=== PATIENT | female | born 1940 | race Caucasian/White ===

== ENCOUNTER 2017-04-07 12:58 | Emergency (ER) | payer OTHER ==
[2017-04-07 13:34] VITALS: BP 147/83; PULSE 81; TEMP 98.1; BMI 26.6
--- NOTE | 2017-04-07 14:11 | PDOC ---
*Physical Exam - Vital Signs Last Vital Signs Temp Pulse Resp BP Pulse Ox 98.1 F 81 16 147/83 04/07/17 13:17 04/07/17 13:17 04/07/17 13:17 04/07/17 13:17 - Physical Exam Comments: 04/07/17 14:11 The patient was examined by WARPER TENDER Andolino] under my direct supervision. I personally evaluated the patient. I concur with the above findings and the plan of care. ED Treatment Course - RADIOLOGY Radiology Studies Ordered: Category Date Time Status KUB (KID UR & BLAD) [RAD] Stat Radiology 04/07/17 13:21 Taken *DC/Admit/Observation/Transfer Diagnosis at time of Disposition: Gastrojejunostomy tube status - Discharge Dispostion Disposition: SENIOR CARE FACILITY - Referrals Referrals: Diego Coffey MD [Primary Care Provider] - - Patient Instructions Additional Instructions: G tube is cleared for use Gairbay catheter has been changed. Patient can be returned to shelter facility. - Post Discharge Activity
--- NOTE | 2017-04-07 14:20 | PDOC ---
History of Present Illness - General Chief Complaint: G Tube Problem Stated Complaint: GTUBE REPLACEMENT Time Seen by Provider: 04/07/17 13:47 History Source: Patient Exam Limitations: No Limitations - History of Present Illness Initial Comments: 04/07/17 13:57 Patient is a [76-year-old female from [facility], BIBA, vented, H/O supranuclear palsy, paralyzed, nonverbal, sent for GT evaluation. Gtube was dislodged during turning and replaced. Needs a GT study prior to use. ] Allergies: Levofloxacin Medications: [See medication list] Family History: Non-contributory Social History: Denies smoking, alcohol use, or IVDU Vital signs on arrival are [notable for temp 97.4] Past History - Past Medical History Allergies/Adverse Reactions: Allergies Allergy/AdvReac Type Severity Reaction Status Date / Time levofloxacin [From Levaquin] Allergy Verified 04/07/17 13:17 Home Medications: Ambulatory Orders Atenolol [Tenormin -] 25 mg PO DAILY 01/02/15 Methenamine 1 gm PO BID 01/02/15 Mirtazapine 30 mg PO DAILY 01/02/15 Paroxetine HCl 40 mg PO DAILY 01/02/15 Multivitamin 1 tab PO DAILY 01/10/15 Prostat Sugar-Free Packet - 1 packet PO TID 01/10/15 COPD: No HTN: Yes Hypercholesterolemia: Yes - Surgical History GI Surgery: Yes (GT placement) Orthopedic Surgery: Yes (ankle sx) - Suicide/Smoking/Psychosocial Hx Smoking History: Never smoked Have you smoked in the past 12 months: No Information on smoking cessation initiated: No Hx Alcohol Use: No Drug/Substance Use Hx: No Substance Use Type: None Review of Systems - Review of Systems Constitutional: No: Symptoms Reported Respiratory: No: Symptoms reported Cardiac (ROS): No: Symptoms Reported ABD/GI: No: Abdominal Distended, Diarrhea, Vomiting, Tarry Stools All Other Systems: Reviewed and Negative *Physical Exam - Vital Signs Last Vital Signs Temp Pulse Resp BP Pulse Ox 98.1 F 81 16 147/83 04/07/17 13:17 04/07/17 13:17 04/07/17 13:17 04/07/17 13:17 - Physical Exam General Appearance: Yes: Other (Proper hygeine) Neck: negative: Lymphadenopathy (R), Lymphadenopathy (L) Respiratory/Chest: positive: Other (Vented, rhonchi bilat) Cardiovascular: positive: Regular Rhythm, Regular Rate Gastrointestinal/Abdominal: positive: Normal Bowel Sounds, Flat, Soft, Other ( no facial grimaces on exam). negative: Distended Lymphatic: negative: Adenopathy Integumentary: positive: Normal Color, Dry Neurologic: positive: Alert (opens eyes, blinks on command) Medical Decision Making - Medical Decision Making 04/07/17 14:25 A/P: H&H G-tube was replaced here for G-tube study for clearance to use. X-ray performed awaiting results family is also requesting for Garibay catheter to be changed states it has been not changed in 30 days. Patient is afebrile with no evidence of infection will change Garibay catheter 04/07/17 16:23 Garibay catheter has been changed, G-tube is within the stomach, patient can be DC back to facility. Son was made aware on his cell phone will call for [facility] transport *DC/Admit/Observation/Transfer Diagnosis at time of Disposition: Gastrojejunostomy tube status - Discharge Dispostion Disposition: SENIOR CARE FACILITY Admit: No - Referrals Referrals: Diego Coffey MD [Primary Care Provider] - - Patient Instructions Additional Instructions: G tube is cleared for use Garibay catheter has been changed. Patient can be returned to care home facility. - Post Discharge Activity
== END 2017-04-07 19:15 ==
LOC: JER 12:58
DX: Z43.1 Encounter for attention to gastrostomy (principal)
CPT/HCPCS: 74018-TC; 99282-25

== ENCOUNTER 2017-05-28 18:20 | Inpatient (IN) | payer OTHER ==
--- NOTE | 2017-05-28 18:46 | PDOC ---
Attending Attestation - Resident Resident Name: Prakash Mac - ED Attending Attestation I have performed the following: I have examined & evaluated the patient, The case was reviewed & discussed with the resident, I agree w/resident's findings & plan, Exceptions are as noted - HPI HPI: 05/28/17 19:19 Ms Pura Grimes is a 76 yo F with a history of supernuclear palsy, recently seen in the ER s/p G tube dislodgement and replacement Pt apparently has been being treated for UTI with bactrim for the past week Pt presents to the ER due to fevers Pt has no localizing complaints at this time 05/28/17 19:21 - Physicial Exam PE: 05/29/17 00:41 GENERAL: Awake, alert, and fully oriented, in no acute distress, responds to questions with blinking HEAD: No signs of trauma EYES: PERRLA, EOMI, sclera anicteric, conjunctiva clear ENT: tracheostomy in place, Moist mucosa NECK: supple, tracheostomy in place LUNGS: decreased breath sounds at bases, coarse breath sounds bilaterally HEART: Regular rate and rhythm, normal S1 and S2, no murmurs, rubs or gallops, peripheral pulses normal and equal bilaterally. ABDOMEN: Soft, nontender EXTREMITIES: No lower extremity edema SKIN: Sacral decubiti - Medical Decision Making 05/28/17 19:22 76 yo F presenting to the ER due to fever Will place sepsis orderset Eval for source ? resistant UTI Pneumonia no cellulitis noted 05/28/17 19:22 Laboratory Tests 05/28/17 05/28/17 05/28/17 20:00 20:00 20:00 WBC 15.1 H Hgb 11.4 Hct 33.7 Plt Count 366 Neutrophils % 65.4 Lymphocytes % 24.9 Sodium 130 L Potassium 3.6 Chloride 92 L Carbon Dioxide 28 BUN 48 H Creatinine 0.6 Random Glucose 96 Lactic Acid Creatine Kinase 38 Troponin I < 0.02 Urine Blood Negative Urine Nitrite Negative Ur Leukocyte Esterase 3+ H Urine WBC (Auto) 352 Urine RBC (Auto) 74 Stool Occult Blood 05/28/17 05/28/17 20:00 21:20 WBC Hgb Hct Plt Count Neutrophils % Lymphocytes % Sodium Potassium Chloride Carbon Dioxide BUN Creatinine Random Glucose Lactic Acid 1.2 Creatine Kinase Troponin I Urine Blood Urine Nitrite Ur Leukocyte Esterase Urine WBC (Auto) Urine RBC (Auto) Stool Occult Blood Negative Lactic nml (+) UTI despite outpt treatment with Bactrim (this is complicated by the fact that this patient has an indwelling cathether) Ceftriaxone ordered Admit to hospitalist service Clinical Impression: fever, initial presentation UTI, initial presentation Discharge Disposition - Diagnosis UTI (urinary tract infection) Qualifiers: Urinary tract infection type: catheter-associated UTI Indwelling urinary catheter type: indwelling urethral catheter Encounter type: initial encounter Qualified Code(s): T83.511A - Infection and inflammatory reaction due to indwelling urethral catheter, initial encounter - Discharge Dispostion Condition at time of disposition: Stable Admit: Yes - Referrals Referrals: Diego Coffey MD [Primary Care Provider] - - Patient Instructions - Post Discharge Activity
[2017-05-28 19:15] VITALS: BMI 26.6
[2017-05-28 20:07] LABS: BASO % 1.1 % (0-2.0); HEMATOCRIT 33.7 % (32.4-45.2); HEMOGLOBIN 11.4 GM/dL (10.7-15.3); LYMPH % 24.9 % (8-40); MCH 29.8 pg (25.7-33.7); MCHC 33.8 g/dl (32.0-36.0); MEAN PLT VOLUME 8.1 fl (7.5-11.1); MONO % 7.6 % (3.8-10.2); NEUT % 65.4 % (42.8-82.8); PLATELET COUNT 366 K/MM3 (134-434); RBC 3.82 M/mm3 (3.60-5.2); RDW 15.2 % (11.6-15.6); WHITE BLOOD COUNT 15.1 K/mm3 (4.0-10.0)
--- NOTE | 2017-05-28 20:19 | PDOC ---
History of Present Illness - General Chief Complaint: SIRS, Suspected/Possible Stated Complaint: FEVER Time Seen by Provider: 05/28/17 18:34 History Source: Family Exam Limitations: Clinical Condition - History of Present Illness Initial Comments: 05/28/17 20:11 history of supranuclear palsy, s/p trach placement in 03/14 and g-tube placement in 2014 [facility] of possible infection. Patient has extremely limited communication at baseline which limits evaluation of mental status and history. Her daughter reports that she had been treated for a UTI with bactrim for the past week at [facility], but was found to be febrile and was sent in for evaluation. Patient has prior urine culture positive for proteus and klebsiella, resistant to cipro and nitrofurantoin. Patient has alvarez placed. Daughter also reports significant amount of fluid, mostly clear with small amount of brown material discharging from around tube. Past History - Past Medical History Allergies/Adverse Reactions: Allergies Allergy/AdvReac Type Severity Reaction Status Date / Time levofloxacin [From Levaquin] Allergy Verified 05/28/17 18:25 Home Medications: Ambulatory Orders Acetaminophen [Tylenol] 650 mg GT QID PRN 05/25/17 Albuterol 2.5/Ipratropium 0.5 [Duoneb -] 1 neb IH QID 05/25/17 Bismuth Tribromoph/Petrolatum [Xeroform Petrolatum Dress] 1 each TP DAILY Heparin - 5,000 unit SQ BID 05/25/17 Midodrine HCl 10 mg GT Q8H 05/25/17 Mirtazapine [Remeron -] 30 mg GT HS 05/25/17 Nystatin/Triamcin [Nystatin-Triamcinolone Cream] 15 gm TP DAILY 05/25/17 Olopatadine HCl [Patanol] 1 drop OD BID 05/25/17 Paroxetine HCl [Paxil] 40 mg GT DAILY 05/25/17 Polyethylene Glycol 3350 [Miralax (For Bowel Prep) -] 17 gm GT DAILY 05/25/17 Sennosides [Senna] 2 tab GT HS 05/25/17 Silver Sulfadiazine 1% Top Cr [Silvadene -] 1 applic TP DAILY 05/25/17 Albuterol 2.5/Ipratropium 0.5 [Duoneb -] 1 amp IH QID 05/28/17 Famotidine 20 mg PO BID 05/28/17 Hypromellose 0.5% Opth Soln [Artificial Tears] 1 drop OU BID 05/28/17 Tuberculin,Purif.prot.deriv. [Tubersol] 05/28/17 COPD: Yes Psychiatric Problems: Yes (DEPRESSION, BIPOLAR) - Surgical History Abdominal Surgery: Yes (G TUBE) Neurologic Surgery: Yes (RT KNEE REPLACED) - Suicide/Smoking/Psychosocial Hx Smoking History: Unknown if ever smoked Have you smoked in the past 12 months: No Information on smoking cessation initiated: No Hx Alcohol Use: No Drug/Substance Use Hx: No Substance Use Type: None Review of Systems - Review of Systems Able to Perform ROS?: No (2/2 patient condition) *Physical Exam - Vital Signs Last Vital Signs Temp Pulse Resp BP Pulse Ox 100.4 F H 88 14 107/79 100 05/28/17 18:25 05/28/17 18:25 05/28/17 18:30 05/28/17 18:25 05/28/17 18:25 - Physical Exam Comments: 05/28/17 20:30 GENERAL: Awake, alert, and fully oriented, in no acute distress HEAD: No signs of trauma, normocephalic, atraumatic EYES: PERRLA, EOMI, sclera anicteric, conjunctiva clear ENT: Auricles normal inspection, hearing grossly normal, nares patent, oropharynx clear without exudates. Moist mucosa NECK: Normal ROM, supple, no lymphadenopathy, JVD, or masses LUNGS: No distress, speaks full sentences, coarse breath sounds bilaterally HEART: Regular rate and rhythm, normal S1 and S2, no murmurs, rubs or gallops, peripheral pulses normal and equal bilaterally. ABDOMEN: Soft, nontender, normoactive bowel sounds. No guarding, no rebound. No masses EXTREMITIES: Normal inspection, Normal range of motion, no edema. No clubbing or cyanosis. SKIN: Warm, Dry, normal turgor, no rashes or lesions noted. ED Treatment Course - LABORATORY CBC & Chemistry Diagram: 05/31/17 06:23 05/31/17 06:23 - ADDITIONAL ORDERS Additional order review: 05/28/17 20:00 RBC 3.82 MCV 88.0 MCHC 33.8 RDW 15.2 MPV 8.1 Neutrophils % 65.4 Lymphocytes % 24.9 Monocytes % 7.6 Eosinophils % 1.0 Basophils % 1.1 - RADIOLOGY Radiology Studies Ordered: Category Date Time Status CHEST X-RAY PORTABLE* [RAD] Stat Radiology 05/28/17 18:43 Taken Medical Decision Making - Medical Decision Making 05/28/17 20:34 Patient is 76F with history of supranuclear palsy, on vent and g tube here today with fever of unknown origin. Vital signs notable for fever, but no tachycardia and normal respiratory rate. Bedside ultrasound shows b-lines bilaterally with decreased ejection fraction. Urine in alvarez appears infected. Will cover broadly, low threshold to antibiose. Will hold fluids for now, patient's lungs appear fluid overloaded. EKG shows normal sinus rhythm, normal rate, normal axis. No st elevations/ depressions. No t wave abnormalities. Normal QRS/IN/QTc intervals. 05/28/17 21:50 Patient has clear fluid with brown flecks discharging from tube. Concern for obstruction vs fluid overload. Will do abdominal CT. 05/28/17 21:55 Laboratory Tests 05/28/17 05/28/17 05/28/17 20:00 20:00 20:00 WBC 15.1 H Hgb 11.4 Hct 33.7 Plt Count 366 VBG pH 7.58 H BUN Creatinine Creat Clearance w eGFR Lactic Acid Troponin I Ur Leukocyte Esterase 3+ H Urine WBC (Auto) 352 Urine Bacteria Many Stool Occult Blood 05/28/17 05/28/17 05/28/17 20:00 20:00 21:20 WBC Hgb Hct Plt Count VBG pH BUN 48 H Creatinine 0.6 Creat Clearance w eGFR > 60 Lactic Acid 1.2 Troponin I < 0.02 Ur Leukocyte Esterase Urine WBC (Auto) Urine Bacteria Stool Occult Blood Negative CBC shows leukocytosis, vbg shows alkalosis. UA shows UTI. Trop neg. Lactate neg. Cr normal. Stool for occult blood negative. CT abd/pelvis pending. 05/28/17 23:26 CT shows G tube appropriately placed with distended stomach, large stool burden. No acute pathology. Patient's daughter reports patient has had alvarez for 7 years. Placed due to urinary retention. Current one has been placed for two weeks. Will change alvarez. *DC/Admit/Observation/Transfer Diagnosis at time of Disposition: UTI (urinary tract infection) Qualifiers: Urinary tract infection type: catheter-associated UTI Indwelling urinary catheter type: indwelling urethral catheter Encounter type: initial encounter Qualified Code(s): T83.511A - Infection and inflammatory reaction due to indwelling urethral catheter, initial encounter - Discharge Dispostion Condition at time of disposition: Stable Admit: Yes - Referrals - Patient Instructions - Post Discharge Activity
[2017-05-28 20:21] LABS: URINE APPEARANCE CLOUDY; URINE BILIRUBIN NEGATIVE (NEGATIVE); URINE BLOOD NEGATIVE (NEGATIVE); URINE COLOR AMBER; URINE GLUCOSE (UA) NEGATIVE (NEGATIVE); URINE KETONE NEGATIVE (NEGATIVE); URINE NITRITE NEGATIVE (NEGATIVE); URINE UROBILINOGEN 4.0 E.U/dl mg/dL (0.2-1.0); VENOUS PH 7.58 (7.32-7.42); VENOUS PO2 45.5 mmHg (28-48)
[2017-05-28 20:26] LABS: INR 1.06 (0.82-1.09)
[2017-05-28 20:29] LABS: ACTIVATED PTT 25.2 SECONDS (26.9-34.4); URINE LEUK ESTERASE 3+ (NEGATIVE); URINE PROTEIN 2+ (NEGATIVE)
[2017-05-28 20:30] LABS: EPI CELLS RARE /HPF (FEW); URINE BACTERIA MANY /hpf (NONE SEEN); URINE MUCUS RARE
[2017-05-28 20:41] LABS: ALBUMIN 3.2 g/dl (3.4-5.0); ANION GAP 10 (8-16); BILIRUBIN,TOTAL 0.5 mg/dL (0.2-1.0); BLOOD UREA NITROGEN 48 mg/dL (7-18); CALCIUM 8.7 mg/dL (8.5-10.1); CHLORIDE 92 mmol/L (98-107); CO2 28 mmol/L (21-32); CREATININE 0.6 mg/dL (0.55-1.02); GLUCOSE,RANDOM 96 mg/dL (74-106); SGPT/ALT 15 U/L (12-78); SODIUM 130 mmol/L (136-145); TOT PROT 6.8 g/dl (6.4-8.2)
[2017-05-28 20:43] LABS: ALK PHOS 151 U/L (45-117)
[2017-05-28 20:46] LABS: POTASSIUM 3.6 mmol/L (3.5-5.1); SGOT/AST 20 U/L (15-37)
[2017-05-28] MEDS ORDERED: CEFTRIAXONE 1 GM in DEXTROSE 5%-WATER - 50 ML IVPB ONE (21:51)
[2017-05-28] MEDS ORDERED: cefTRIAXone SODIUM 1 GM VIAL ONE (22:27)
[2017-05-28] MEDS ORDERED: ACETAMINOPHEN 1000 MG/100 ML VIAL (NON FORMULARY) IVPB ONE (23:05)
--- NOTE | 2017-05-28 23:56 | HP ---
CHIEF COMPLAINT: Fever, UTI PCP: HISTORY OF PRESENT ILLNESS: History was taken from medical records and ED notes pt is non verbal. 76 year old femal with history of supranuclear palsy, s/p trach placement in and g-tube placement in 2014 [facility]. Patient has extremely limited communication at baseline which limits evaluation of mental status and history. Her daughter reports that she had been treated for a UTI with bactrim for the past week at [facility], but was found to be febrile and was sent in for evaluation. Patient has prior urine culture positive for proteus and klebsiella, resistant to cipro and nitrofurantoin. Patient has alvarez placed. Daughter also reports significant amount of fluid, mostly clear with small amount of brown material discharging from around tube. ER course was notable for: (1)cbc, CMP (2)UA (3)Ceftriaxone 1 gm IVBP Recent Travel:denies PAST MEDICAL HISTORY: unobtained PAST SURGICAL HISTORY: unobtained Social History: un able to obtain Smoking: Alcohol: Drugs: Family History:none Allergies levofloxacin [From Levaquin] Allergy (Verified 05/28/17 18:25) HOME MEDICATIONS: Home Medications Medication Instructions Recorded Acetaminophen [Tylenol] 650 mg GT QID PRN 05/25/17 Albuterol 2.5/Ipratropium 0.5 1 neb IH QID 05/25/17 [Duoneb -] Bismuth Tribromoph/Petrolatum 1 each TP DAILY 05/25/17 [Xeroform Petrolatum Dress] Heparin - 5,000 unit SQ BID 05/25/17 Midodrine HCl 10 mg GT Q8H 05/25/17 Mirtazapine [Remeron -] 30 mg GT HS 05/25/17 Nystatin/Triamcin 15 gm TP DAILY 05/25/17 [Nystatin-Triamcinolone Cream] Olopatadine HCl [Patanol] 1 drop OD BID 05/25/17 Paroxetine HCl [Paxil] 40 mg GT DAILY 05/25/17 Polyethylene Glycol 3350 [Miralax 17 gm GT DAILY 05/25/17 (For Bowel Prep) -] Sennosides [Senna] 2 tab GT HS 05/25/17 Silver Sulfadiazine 1% Top Cr 1 applic TP DAILY 05/25/17 [Silvadene -] Albuterol 2.5/Ipratropium 0.5 1 amp IH QID 05/28/17 [Duoneb -] Famotidine 20 mg PO BID 05/28/17 Hypromellose 0.5% Opth Soln 1 drop OU BID 05/28/17 [Artificial Tears] Tuberculin,Purif.prot.deriv. 05/28/17 [Tubersol] REVIEW OF SYSTEMS unable to obtain , pt is non verbal PHYSICAL EXAMINATION Vital Signs - 24 hr 05/28/17 05/28/17 05/28/17 18:25 18:30 20:30 Temperature 100.4 F H Pulse Rate 88 Pulse Rate [ Apical] Respiratory 12 14 Rate Blood Pressure 107/79 Blood Pressure [Right Arm] O2 Sat by Pulse 100 98 Oximetry (%) 05/28/17 05/28/17 05/28/17 20:45 21:58 22:09 Temperature 100.4 F H 100.4 F H Pulse Rate 97 H Pulse Rate [ 90 Apical] Respiratory 16 17 18 Rate Blood Pressure 114/82 Blood Pressure 112/84 [Right Arm] O2 Sat by Pulse 10 L 98 Oximetry (%) GENERAL: non verbal , seems in NAD , Trachea in place , G tube in place , HEAD: Normal with no signs of trauma. EYES: Pupils equal, round and reactive to light, extraocular movements intact, sclera anicteric, conjunctiva clear. ENT :moist mucous membranes. NECK: supple without lymphadenopathy, JVD, LUNGS: CTA B/L , scattered breath sounds due to ventilator. HEART: RRR, normal S1 and S2 no MRG ABDOMEN: obese, Soft, nontender, not distended, normoactive bowel sounds, no guarding, LOWER EXTREMITIES: 2+ pulses, warm, well-perfused. No calf tenderness. No peripheral edema. NEUROLOGICAL: unable to evaluate. pt is in position with closed handgrip. SKIN: Warm, dry, 2 decubitus ulcer stage II (erythema with exfoliation but no infection) Laboratory Results - last 24 hr 05/28/17 05/28/17 05/28/17 20:00 20:00 20:00 WBC 15.1 H RBC 3.82 Hgb 11.4 Hct 33.7 MCV 88.0 MCH 29.8 MCHC 33.8 RDW 15.2 Plt Count 366 MPV 8.1 Neutrophils % 65.4 Lymphocytes % 24.9 Monocytes % 7.6 Eosinophils % 1.0 Basophils % 1.1 PT with INR 12.00 H INR 1.06 PTT (Actin FS) 25.2 L VBG pH POC VBG pCO2 POC VBG pO2 Mixed VBG HCO3 Sodium Potassium Chloride Carbon Dioxide Anion Gap BUN Creatinine Creat Clearance w eGFR Random Glucose Lactic Acid Calcium Total Bilirubin AST ALT Alkaline Phosphatase Creatine Kinase Troponin I Total Protein Albumin Urine Color Hanna Urine Appearance Cloudy Urine pH 7.0 Ur Specific [place] 1.024 Urine Protein 2+ H Urine Glucose (UA) Negative Urine Ketones Negative Urine Blood Negative Urine Nitrite Negative Urine Bilirubin Negative Urine Urobilinogen 4.0 e.u/dl H Ur Leukocyte Esterase 3+ H Urine WBC (Auto) 352 Urine RBC (Auto) 74 Ur Epithelial Cells Rare Urine Bacteria Many Urine Mucus Rare Stool Occult Blood Blood Type Antibody Screen 05/28/17 05/28/17 05/28/17 20:00 20:00 20:00 WBC RBC Hgb Hct MCV MCH MCHC RDW Plt Count MPV Neutrophils % Lymphocytes % Monocytes % Eosinophils % Basophils % PT with INR INR PTT (Actin FS) VBG pH 7.58 H POC VBG pCO2 32.0 L POC VBG pO2 45.5 Mixed VBG HCO3 30.3 H Sodium 130 L Potassium 3.6 Chloride 92 L Carbon Dioxide 28 Anion Gap 10 BUN 48 H Creatinine 0.6 Creat Clearance w eGFR > 60 Random Glucose 96 Lactic Acid 1.2 Calcium 8.7 Total Bilirubin 0.5 AST 20 ALT 15 Alkaline Phosphatase 151 H Creatine Kinase 38 Troponin I < 0.02 Total Protein 6.8 Albumin 3.2 L Urine Color Urine Appearance Urine pH Ur Specific [place] Urine Protein Urine Glucose (UA) Urine Ketones Urine Blood Urine Nitrite Urine Bilirubin Urine Urobilinogen Ur Leukocyte Esterase Urine WBC (Auto) Urine RBC (Auto) Ur Epithelial Cells Urine Bacteria Urine Mucus Stool Occult Blood Blood Type Antibody Screen 05/28/17 05/28/17 20:00 21:20 WBC RBC Hgb Hct MCV MCH MCHC RDW Plt Count MPV Neutrophils % Lymphocytes % Monocytes % Eosinophils % Basophils % PT with INR INR PTT (Actin FS) VBG pH POC VBG pCO2 POC VBG pO2 Mixed VBG HCO3 Sodium Potassium Chloride Carbon Dioxide Anion Gap BUN Creatinine Creat Clearance w eGFR Random Glucose Lactic Acid Calcium Total Bilirubin AST ALT Alkaline Phosphatase Creatine Kinase Troponin I Total Protein Albumin Urine Color Urine Appearance Urine pH Ur Specific [place] Urine Protein Urine Glucose (UA) Urine Ketones Urine Blood Urine Nitrite Urine Bilirubin Urine Urobilinogen Ur Leukocyte Esterase Urine WBC (Auto) Urine RBC (Auto) Ur Epithelial Cells Urine Bacteria Urine Mucus Stool Occult Blood Negative Blood Type B POSITIVE Antibody Screen Negative CBC, BMP 05/28/17 20:00 05/28/17 20:00 ASSESSMENT/PLAN: 76 year old female with history of supranuclear palsy, s/p trach placement in and g-tube placement in 2014 [facility] of possible infection was found to be septic and admitted for further evaluation. # sepsis secondary to UTI vs aspiration pneumonia vs another sources * temp 100.4 , Tachy 97, BP 114/82, wbc 15.1 , LA 1.2 * chronic alvarez catheter and PEG Tube * Leigh cx urine ,blood * Rocephin in ED * ID consulted Dr Tre Banuelos * IV fluids NA 100 CC/Hr * ESR, CRP , CBC , CMP # Hyponatremia * NA 130 * started on IV NS 100 CC/hr # Stage II decupitus ulcer * erythema with skin exfoliation but no signs of infection * topical radha oxide * change position q 2hr # Chronic respiratory failure on ventilator , unknown reason , stable * continue ventilator * kepp O2 > 90 % # COPD * DUO neb * O2 to keeo O2 sat >90 % # Supranuclear palsy , chronic , stable * continue to monitor # resume her home meds # FEN * NS @ 100 CC/Hr * E: Monitor * N: NPO till G tube evaluated # Proph * DVTS: sCDS, Hep 5000 q 8hr * GI: No need for now # Dispo * admit to med surg Visit type - Emergency Visit Emergency Visit: Yes ED Registration Date: 05/29/17 Care time: The patient presented to the Emergency Department on the above date and was hospitalized for further evaluation of their emergent condition. - New Patient This patient is new to me today: Yes Date on this admission: 06/01/17 - Critical Care Critical Care patient: No Hospitalist Screening - Colonoscopy Questionnaire Colonoscopy Questionnaire: Colonoscopy Questionnaire - Patient: 50 - 75 years old and never had a screening colonoscopy: Unknown History of colon or rectal polyps, or CA: Unknown History of IBD, Crohn's disease or UC: Unknown History of abdominal radiation therapy as a child: Unknown (pt is non verbal) - Relative: 1 with colon or rectal CA, or polyps at age 60 or younger: Unknown Colon or rectal CA diagnosed at age 45 or younger: Unknown Multiple relatives with colon or rectal CA: Unknown - Outcome: Screening Result: Negative Screen
[2017-05-29] MEDS ORDERED: ACETAMINOPHEN INJECTION 100 ML IVPB ONE (00:05)
[2017-05-29] MEDS ORDERED: ACETAMINOPHEN 325 MG TABLET (FP) PO PRN (01:33)
[2017-05-29] MEDS: SODIUM CHLORIDE 1,000 ML IV SCH ×2 (01:47→14:27)
[2017-05-29] MEDS ORDERED: cefTRIAXone SODIUM 1 GM VIAL ONE (01:57)
[2017-05-29] MEDS ORDERED: ACETAMINOPHEN 325 MG TABLET (FP) ONE (01:57)
[2017-05-29 02:15] LABS: ARTERIAL BLD GAS O2 SATURATION 97.5 % (90-98.9); ARTERIAL BLOOD GAS BASE EXCESS 5.5 meq/l (-2-2); ARTERIAL BLOOD GAS PO2 80.8 mmHg (70-100); CARBOXYHEMOGLOBIN 1.4 gm% (0.5-2.0)
[2017-05-29 02:16] LABS: ALLENS TEST POSITIVE
[2017-05-29 02:17] LABS: ARTERIAL BLOOD GAS PCO2 29.8 mmHg (35-45); ARTERIAL BLOOD GAS pH 7.57 (7.35-7.45)
[2017-05-29 02:20] LABS: EOS % 1.6 % (0-4.5); HEMATOCRIT 31.3 % (32.4-45.2); HEMOGLOBIN 10.7 GM/dL (10.7-15.3); LYMPH % 22.6 % (8-40); MCHC 34.1 g/dl (32.0-36.0); MEAN PLT VOLUME 7.8 fl (7.5-11.1); MONO % 7.3 % (3.8-10.2); NEUT % 67.5 % (42.8-82.8); PLATELET COUNT 353 K/MM3 (134-434); RBC 3.56 M/mm3 (3.60-5.2); RDW 15.1 % (11.6-15.6); WHITE BLOOD COUNT 11.3 K/mm3 (4.0-10.0)
[2017-05-29 02:40] LABS: INR 1.07 (0.82-1.09); PROTHROMBIN TIME (PATIENT) 12.1 SEC (9.98-11.88)
[2017-05-29 02:42] LABS: ACTIVATED PTT 25.1 SECONDS (26.9-34.4)
[2017-05-29 02:49] LABS: ALK PHOS 146 U/L (45-117); ANION GAP 13 (8-16); BILIRUBIN,TOTAL 0.3 mg/dL (0.2-1.0); BLOOD UREA NITROGEN 50 mg/dL (7-18); CHLORIDE 92 mmol/L (98-107); CO2 26 mmol/L (21-32); CREATININE 0.6 mg/dL (0.55-1.02); GLUCOSE,RANDOM 100 mg/dL (74-106); SGOT/AST 14 U/L (15-37); SGPT/ALT 14 U/L (12-78); SODIUM 131 mmol/L (136-145); TOT PROT 6.5 g/dl (6.4-8.2)
[2017-05-29 02:51] LABS: POTASSIUM 2.9 mmol/L (3.5-5.1)
[2017-05-29] MEDS ORDERED: KCL 10 MEQ IVPB 20 MEQ/200 ML INFUS.BAG IVPB ONE (03:11)
[2017-05-29] MEDS: KCL 10 MEQ IVPB 10 MEQ/100 ML INFUS.BAG IVPB SCH ×2 (03:20→04:59)
[2017-05-29 06:41] LABS: ANION GAP 14 (8-16); BLOOD UREA NITROGEN 46 mg/dL (7-18); CALCIUM 9.1 mg/dL (8.5-10.1); CHLORIDE 92 mmol/L (98-107); CO2 25 mmol/L (21-32); CREATININE 0.6 mg/dL (0.55-1.02); GLUCOSE,RANDOM 92 mg/dL (74-106); POTASSIUM 3.3 mmol/L (3.5-5.1); SODIUM 131 mmol/L (136-145)
[2017-05-29 06:42] LABS: MAGNESIUM 2.3 mg/dL (1.8-2.4); PHOSPHOROUS 3.1 mg/dL (2.5-4.9)
[2017-05-29] MEDS ORDERED: HEPARIN NA (PORCINE) 5,000 UNITS/ML 1ML VIAL ONE (06:52)
--- NOTE | 2017-05-29 07:00 | PN ---
Teaching Attending Note Name of Resident: Romel Romano ATTENDING PHYSICIAN STATEMENT I saw and evaluated the patient. I reviewed the resident's note and discussed the case with the resident. I agree with the resident's findings and plan as documented. SUBJECTIVE: 76F chronic bedbound PEG trach due to supranuclear palsy sent in from her NH for fever 100.4 OBJECTIVE: trach and PEG, nonverbal, Rt sided contractures lungs CTA abd soft NTND Ext no edema chronic indwelling alvarez minimal vent settings UA 3+ LE Temp 100.4 WBC 15 CXR: poor image quality but may be some RLL infiltrates ASSESSMENT AND PLAN: 76F with likely UTI versus PNA start ceftriaxone IVF ID eval Problem List - Problems (1) UTI (urinary tract infection) Code(s): N39.0 - URINARY TRACT INFECTION, SITE NOT SPECIFIED Qualifiers: Urinary tract infection type: catheter-associated UTI Indwelling urinary catheter type: indwelling urethral catheter Encounter type: initial encounter Qualified Code(s): T83.511A - Infection and inflammatory reaction due to indwelling urethral catheter, initial encounter; N39.0 - Urinary tract infection , site not specified; N39.0 - Urinary tract infection, site not specified
[2017-05-29] MEDS: HEPARIN NA (PORCINE) 5,000 UNITS/ML 1ML VIAL SQ SCH ×3 (07:03→21:37)
[2017-05-29 08:23] LABS: URINE APPEARANCE CLEAR; URINE BILIRUBIN NEGATIVE (NEGATIVE); URINE BLOOD 1+ (NEGATIVE); URINE COLOR YELLOW; URINE GLUCOSE (UA) NEGATIVE (NEGATIVE); URINE KETONE 1+ (NEGATIVE); URINE NITRITE NEGATIVE (NEGATIVE); URINE PROTEIN NEGATIVE (NEGATIVE)
[2017-05-29 08:42] LABS: URINE LEUK ESTERASE 2+ (NEGATIVE)
[2017-05-29 08:44] LABS: EPI CELLS RARE /HPF (FEW); URINE MUCUS RARE
--- NOTE | 2017-05-29 09:53 | PN ---
Physical Exam: SUBJECTIVE: Patient seen and examined Patient is lying in bed with no acute distress, Daughter st bedside, patient is on the Vent. OBJECTIVE: Vital Signs Temperature 98.6 F 05/29/17 07:04 Pulse Rate 92 H 05/29/17 07:04 Respiratory Rate 14 05/29/17 07:06 Blood Pressure 84/67 05/29/17 07:04 O2 Sat by Pulse Oximetry (%) 98 05/29/17 07:04 GENERAL: The patient is on the Vent. but no acute distress. HEAD: Normal with no signs of trauma. EYES: PERRL, extraocular movements intact, sclera anicteric, conjunctiva clear. ENT: Ears normal, patient is on the Vent. NECK: Trachea midline, full range of motion, supple. LUNGS: Breath sounds decreased at basis bl, No wheezing,positive rales at basis , no accessory muscle use. On the Vent. HEART: Regular rate and rhythm, S1, S2 positive, no rub or gallop. ABDOMEN: Soft, mildly distended, diminished BS, no guarding, no rebound, no hepatosplenomegaly, no masses appreciated.positive for Gtube EXTREMITIES: 2+ pulses, warm, well-perfused, no edema. NEUROLOGICAL: Cranial nerves II through XII grossly intact. Normal speech, gait not observed. PSYCH: Normal mood, normal affect. SKIN: Warm, dry, normal turgor, no rashes or lesions noted CBCD WBC 11.3 K/mm3 (4.0-10.0) H 05/29/17 02:14 RBC 3.56 M/mm3 (3.60-5.2) L 05/29/17 02:14 Hgb 10.7 GM/dL (10.7-15.3) 05/29/17 02:14 Hct 31.3 % (32.4-45.2) L 05/29/17 02:14 MCV 88.0 fl (80-96) 05/29/17 02:14 MCHC 34.1 g/dl (32.0-36.0) 05/29/17 02:14 RDW 15.1 % (11.6-15.6) 05/29/17 02:14 Plt Count 353 K/MM3 (134-434) 05/29/17 02:14 MPV 7.8 fl (7.5-11.1) 05/29/17 02:14 CMP Sodium 131 mmol/L (136-145) L 05/29/17 06:00 Potassium 3.3 mmol/L (3.5-5.1) L 05/29/17 06:00 Chloride 92 mmol/L (98-107) L 05/29/17 06:00 Carbon Dioxide 25 mmol/L (21-32) 05/29/17 06:00 Anion Gap 14 (8-16) 05/29/17 06:00 BUN 46 mg/dL (7-18) H 05/29/17 06:00 Creatinine 0.6 mg/dL (0.55-1.02) 05/29/17 06:00 Creat Clearance w eGFR > 60 (>60) 05/29/17 02:14 Random Glucose 92 mg/dL (74-106) 05/29/17 06:00 Calcium 9.1 mg/dL (8.5-10.1) 05/29/17 06:00 Total Bilirubin 0.3 mg/dL (0.2-1.0) D 05/29/17 02:14 AST 14 U/L (15-37) L 05/29/17 02:14 ALT 14 U/L (12-78) 05/29/17 02:14 Alkaline Phosphatase 146 U/L (45-117) H 05/29/17 02:14 Total Protein 6.5 g/dl (6.4-8.2) 05/29/17 02:14 Albumin 3.0 g/dl (3.4-5.0) L 05/29/17 02:14 CARDIAC ENZYMES Creatine Kinase 38 IU/L (26-192) 05/28/17 20:00 Troponin I < 0.02 ng/ml (0.00-0.05) 05/28/17 20:00 Active Medications Generic Name Dose Route Start Last Admin Trade Name Freq PRN Reason Stop Dose Admin Acetaminophen 650 mg 05/29/17 01:56 Tylenol Oral Solution - GT Q6H PRN PAIN Albuterol/Ipratropium 1 amp 05/29/17 08:00 Duoneb - NEB RQID GRACIE Artificial Tears 1 drop 05/29/17 10:00 Artificial Tears OU BID GRACIE Heparin Sodium (Porcine) 5,000 unit 05/29/17 06:00 03/03/18 07:03 Heparin - SQ 5,000 unit TID GRACIE Administration Sodium Chloride 1,000 mls @ 100 mls/hr 05/29/17 01:30 05/29/17 01:47 Normal Saline - IV 100 mls/hr ASDIR GRACIE Administration Midodrine 10 mg 05/29/17 10:00 Proamatine - GT TID-MID [facility] Mirtazapine 30 mg 05/29/17 22:00 Remeron - GT HS [facility] Nystatin/Triamcinolone Acetonide 1 applic 05/29/17 10:00 Mycolog Ii Cream - TP DAILY [facility] Paroxetine HCl 40 mg 05/29/17 10:00 Paxil - NR DAILY [facility] Polyethylene Glycol 17 gm 05/29/17 10:00 Miralax (For Bowel Prep) - PO DAILY [facility] Ranitidine HCl 150 mg 05/29/17 10:00 Zantac Oral Solution - GT BID [facility] Senna 17.6 mg 05/29/17 22:00 Senna Oral Solution - GT HS [facility] Silver Sulfadiazine 1 applic 05/29/17 10:00 Silvadene - TP DAILY [facility] Home Medications Medication Instructions Recorded Acetaminophen [Tylenol] 650 mg GT QID PRN 05/25/17 Albuterol 2.5/Ipratropium 0.5 1 neb IH QID 05/25/17 [Duoneb -] Bismuth Tribromoph/Petrolatum 1 each TP DAILY 05/25/17 [Xeroform Petrolatum Dress] Heparin - 5,000 unit SQ BID 05/25/17 Midodrine HCl 10 mg GT Q8H 05/25/17 Mirtazapine [Remeron -] 30 mg GT HS 05/25/17 Nystatin/Triamcin 15 gm TP DAILY 05/25/17 [Nystatin-Triamcinolone Cream] Olopatadine HCl [Patanol] 1 drop OD BID 05/25/17 Paroxetine HCl [Paxil] 40 mg GT DAILY 05/25/17 Polyethylene Glycol 3350 [Miralax 17 gm GT DAILY 05/25/17 (For Bowel Prep) -] Sennosides [Senna] 2 tab GT HS 05/25/17 Silver Sulfadiazine 1% Top Cr 1 applic TP DAILY 05/25/17 [Silvadene -] Albuterol 2.5/Ipratropium 0.5 1 amp IH QID 05/28/17 [Duoneb -] Famotidine 20 mg PO BID 05/28/17 Hypromellose 0.5% Opth Soln 1 drop OU BID 05/28/17 [Artificial Tears] Tuberculin,Purif.prot.deriv. 05/28/17 [Tubersol] CXR: B/l Effusions with basilar infiltrate with congestive changes, CM , old rib trauma. ASSESSMENT/PLAN: Patient is a 76 year old female with history of supranuclear palsy, s/p trach placement in 03/14 and g-tube placement in 2014 here from shelter for evaluation of possible infection was found to be septic and admitted for further evaluation. # Sepsis secondary to UTI vs aspiration pneumonia; CXR: B/l Effusions with basilar infiltrate with congestive changes, CM , old rib trauma.Leigh culture was done, follow Cx, and Bcx ON IV Rocephin daily continue, improving. # Chronic respiratory failure , trached due to having supranuclear palsy. # Acute UTI with chronic indwelling catheter for 9 years, can't remove the catheter as per patient's daughter. # Hyponatremia; NA 130--> 131 today improving will discontinue IVF since patient has congestive. # Stage II decupetus ulcer : erythema with skin exfoliation but no signs of infection ;topical radha oxide ;change position q 2hr # COPD:DUO neb;O2 to keeo O2 sat >90 % # DVT Px sCDS, Hep 5000 q 8hr GI Px: No need for now Visit type - Emergency Visit Emergency Visit: Yes ED Registration Date: 05/29/17 Care time: The patient presented to the Emergency Department on the above date and was hospitalized for further evaluation of their emergent condition. - New Patient This patient is new to me today: Yes Date on this admission: 05/29/17 - Critical Care Critical Care patient: No - Discharge Referral Referred to [facility] Med [facility] No
[2017-05-29] MEDS ORDERED: PATIENT'S OWN MEDICATION (NON-FORMULARY) (Bismuth Tribromoph/Petrolatum [Xeroform Petrolat TP SCH (10:00)
[2017-05-29] MEDS ORDERED: OLOPATADINE HCL OD SCH (10:00)
[2017-05-29] MEDS ORDERED: POLYETHYLENE GLYCOL 3350 255 GM BTL PO SCH (10:00)
[2017-05-29] MEDS ORDERED: ALBUTEROL SO4 2.5/IPRATROPIUM 0.5 INH SOL 3 ML VIAL.NEB. NEB ONE (10:10)
[2017-05-29] MEDS: ALBUTEROL SO4 2.5/IPRATROPIUM 0.5 INH SOL 3 ML VIAL.NEB. NEB SCH ×4 (10:12→20:40)
[2017-05-29] MEDS: ARTIFICIAL TEARS (POLYVINYL ALCOHOL 1.4%) OPTH DROPS OU SCH ×2 (11:27→21:36)
[2017-05-29] MEDS: PARoxetine HCL 20 MG TABLET (FP) NR SCH (11:30)
[2017-05-29] MEDS: RANITIDINE HCL 150 MG/10 ML UNIT-DOSE GT SCH ×2 (11:31→21:44)
[2017-05-29] MEDS: MIDODRINE HCL 5 MG TABLET GT SCH ×3 (11:32→18:35)
--- NOTE | 2017-05-29 11:42 | EKG ---
Test Reason : Blood Pressure : / mmHG Vent. Rate : 088 BPM Atrial Rate : 088 BPM P-R Int : 156 ms QRS Dur : 084 ms QT Int : 366 ms P-R-T Axes : 014 074 031 degrees QTc Int : 442 ms NORMAL SINUS RHYTHM NORMAL ECG WHEN COMPARED WITH ECG OF 28-SEP-2001 14:40, QT HAS LENGTHENED Confirmed by MD PRINCE, SHAQ ([id number]) on 05/29/2017 11:41:55 AM Referred By: Confirmed By:SHAQ MORRISON MD
[2017-05-29] MEDS: ACETAMINOPHEN 650 MG/20.3 ML ORAL SOLUTION (CUPS) GT PRN (12:22)
[2017-05-29] MEDS ORDERED: PT OWN MED DRAWER 7, Y5N ONE ×2 (13:53→21:12)
--- NOTE | 2017-05-29 14:52 | CON.PULM ---
Consult Consult Specialty:: PULMONARY Referred by:: Dr. Romano Reason for Consultation:: respiratory failure - History of Present Illness Chief Complaint: fever History of Present Illness: 76yo female with h/o supranuclear palsy, chronic respiratory failure s/p tracheostomy in 02/2017 who was [facility] for fever. Found to have a UTI, started on antibiotics. History obtained from son at bedside. No prior pulmonary history prior to her tracheostomy. No asthma or COPD. She was a never smoker. Was admitted to [facility] for 5 weeks for pneumonia and respiratory failure requiring trach. - History Source History Provided By: Family Member, Medical Record Limitations to Obtaining History: Clinical Condition - Alcohol/Substance Use Hx Alcohol Use: No - Smoking History Smoking history: Unknown if ever smoked Have you smoked in the past 12 months: No Home Medications - Allergies Allergies/Adverse Reactions: Allergies Allergy/AdvReac Type Severity Reaction Status Date / Time levofloxacin [From Levaquin] Allergy Verified 05/28/17 18:25 - Home Medications Home Medications: Ambulatory Orders Acetaminophen [Tylenol] 650 mg GT QID PRN 05/25/17 Albuterol 2.5/Ipratropium 0.5 [Duoneb -] 1 neb IH QID 05/25/17 Bismuth Tribromoph/Petrolatum [Xeroform Petrolatum Dress] 1 each TP DAILY Heparin - 5,000 unit SQ BID 05/25/17 Midodrine HCl 10 mg GT Q8H 05/25/17 Mirtazapine [Remeron -] 30 mg GT HS 05/25/17 Nystatin/Triamcin [Nystatin-Triamcinolone Cream] 15 gm TP DAILY 05/25/17 Olopatadine HCl [Patanol] 1 drop OD BID 05/25/17 Paroxetine HCl [Paxil] 40 mg GT DAILY 05/25/17 Polyethylene Glycol 3350 [Miralax (For Bowel Prep) -] 17 gm GT DAILY 05/25/17 Sennosides [Senna] 2 tab GT HS 05/25/17 Silver Sulfadiazine 1% Top Cr [Silvadene -] 1 applic TP DAILY 05/25/17 Albuterol 2.5/Ipratropium 0.5 [Duoneb -] 1 amp IH QID 05/28/17 Famotidine 20 mg PO BID 05/28/17 Hypromellose 0.5% Opth Soln [Artificial Tears] 1 drop OU BID 05/28/17 Tuberculin,Purif.prot.deriv. [Tubersol] 05/28/17 Review of Systems Unable to obtain ROS, reason: pt trached Physical Exam Vital Sings: Vital Signs Temperature 98.6 F 05/29/17 07:04 Pulse Rate 98 H 05/29/17 11:56 Respiratory Rate 16 05/29/17 12:40 Blood Pressure 101/65 05/29/17 11:56 O2 Sat by Pulse Oximetry (%) 98 05/29/17 11:56 Constitutional: Yes: Other (vented, awake) Eyes: Yes: Conjunctiva Clear, EOM Intact HENT: Yes: Atraumatic, Normocephalic Neck: Yes: Supple, Trachea Midline Cardiovascular: Yes: Regular Rate and Rhythm Respiratory: Yes: Rhonchi ...Clubbing: No Gastrointestinal: Yes: Normal Bowel Sounds, Soft. No: Tenderness Edema: No Labs: CBC, BMP 05/29/17 02:14 05/29/17 06:00 ABG Results ABG pH 7.57 (7.35-7.45) H 05/29/17 02:10 ABG pCO2 at Pt Temp 29.8 mmHg (35-45) L 05/29/17 02:10 ABG pO2 at Pt Temp 80.8 mmHg (70-100) 05/29/17 02:10 ABG HCO3 27.2 meq/L (22-26) H 05/29/17 02:10 ABG O2 Sat (Measured) 97.5 % (90-98.9) 05/29/17 02:10 ABG O2 Content 15.7 % vol (15-22) 05/29/17 02:10 ABG Base Excess 5.5 meq/l (-2-2) H 05/29/17 02:10 Imaging - Results Chest X-ray: Report Reviewed, Image Reviewed (bilateral effusions, cardiomegaly) Problem List - Problems (1) UTI (urinary tract infection) Code(s): N39.0 - URINARY TRACT INFECTION, SITE NOT SPECIFIED Qualifiers: Urinary tract infection type: catheter-associated UTI Indwelling urinary catheter type: indwelling urethral catheter Encounter type: initial encounter Qualified Code(s): T83.511A - Infection and inflammatory reaction due to indwelling urethral catheter, initial encounter; N39.0 - Urinary tract infection , site not specified; N39.0 - Urinary tract infection, site not specified (2) Chronic respiratory failure Code(s): J96.10 - CHRONIC RESPIRATORY FAILURE, UNSP W HYPOXIA OR HYPERCAPNIA Assessment/Plan UTI Supranuclear Palsy Vent Dependent Respiratory Failure r/o CHF Hyponatremia - IV antibiotics - f/u cultures - d/c IVF - consider echocardiogram, lasix - monitor urine output, creatinine - monitor CXR - placed on SIMV with good RR, spontaneous tidal volumes - consider enema, disimpaction - enteral feeds - DVT prophylaxis Thank you for this consult Reyes Aldana MD
--- NOTE | 2017-05-29 16:43 | CON.GI ---
Consult Consult Specialty:: GI Reason for Consultation:: distended abdoman, stool impaction - History of Present Illness History of Present Illness: Chart reviewed. per initial encounter and per pr dauther: 76 year old femal with history of supranuclear palsy, s/p trach placement in 03/14 and g-tube placement in 2014 here from [facility] for evaluation of possible infection. Patient has extremely limited communication at baseline which limits evaluation of mental status and history. Her daughter reports that she had been treated for a UTI with bactrim for the past week at [facility], but was found to be febrile and was sent in for evaluation. Patient has prior urine culture positive for proteus and klebsiella, resistant to cipro and nitrofurantoin. Patient has alvarez placed. Daughter also reports significant amount of fluid, mostly clear with small amount of brown material discharging from around tube. G tube was recently dislodged and replaced with 20F replacement G-tube. CT a/p showed distended stomach and stool in the sigmoid/rectum. Pt's daughter and caregiver report small volume diarrhea, 2/day as a baseline. No reports of vomiting, melena, hematochezia, hematemesis. - History Source History Provided By: Family Member, Medical Record, Caregiver - Alcohol/Substance Use Hx Alcohol Use: No - Smoking History Smoking history: Unknown if ever smoked Have you smoked in the past 12 months: No Home Medications - Allergies Allergies/Adverse Reactions: Allergies Allergy/AdvReac Type Severity Reaction Status Date / Time levofloxacin [From Levaquin] Allergy Verified 05/28/17 18:25 - Home Medications Home Medications: Ambulatory Orders Acetaminophen [Tylenol] 650 mg GT QID PRN 05/25/17 Albuterol 2.5/Ipratropium 0.5 [Duoneb -] 1 neb IH QID 05/25/17 Bismuth Tribromoph/Petrolatum [Xeroform Petrolatum Dress] 1 each TP DAILY Heparin - 5,000 unit SQ BID 05/25/17 Midodrine HCl 10 mg GT Q8H 05/25/17 Mirtazapine [Remeron -] 30 mg GT HS 05/25/17 Nystatin/Triamcin [Nystatin-Triamcinolone Cream] 15 gm TP DAILY 05/25/17 Olopatadine HCl [Patanol] 1 drop OD BID 05/25/17 Paroxetine HCl [Paxil] 40 mg GT DAILY 05/25/17 Polyethylene Glycol 3350 [Miralax (For Bowel Prep) -] 17 gm GT DAILY 05/25/17 Sennosides [Senna] 2 tab GT HS 05/25/17 Silver Sulfadiazine 1% Top Cr [Silvadene -] 1 applic TP DAILY 05/25/17 Albuterol 2.5/Ipratropium 0.5 [Duoneb -] 1 amp IH QID 05/28/17 Famotidine 20 mg PO BID 05/28/17 Hypromellose 0.5% Opth Soln [Artificial Tears] 1 drop OU BID 05/28/17 Tuberculin,Purif.prot.deriv. [Tubersol] 05/28/17 Family Disease History - Family Disease History Family History: Unremarkable Review of Systems Findings/Remarks: as per HPI, H&P Physical Exam-GI Vital Signs: Vital Signs Temperature 100.8 F H 05/29/17 09:31 Pulse Rate 98 H 05/29/17 11:56 Respiratory Rate 16 05/29/17 12:40 Blood Pressure 101/65 05/29/17 11:56 O2 Sat by Pulse Oximetry (%) 98 05/29/17 11:56 Constitutional: Yes: No Distress, Calm Eyes: Yes: Conjunctiva Clear Respiratory: Yes: Regular Gastrointestinal Inspection: Yes: Distention, Other (tracheostomy) ...Palpate: No: Firm/Rigid, Guarding, Tenderness ...Percussion: No: Fluid Wave Labs: CBC, BMP 05/29/17 02:14 05/29/17 06:00 INR, PTT INR 1.07 (0.82-1.09) 05/29/17 02:14 Laboratory Results - last 24 hr 05/28/17 05/28/17 05/28/17 20:00 20:00 20:00 WBC 15.1 H RBC 3.82 Hgb 11.4 Hct 33.7 MCV 88.0 MCH 29.8 MCHC 33.8 RDW 15.2 Plt Count 366 MPV 8.1 Neutrophils % 65.4 Lymphocytes % 24.9 Monocytes % 7.6 Eosinophils % 1.0 Basophils % 1.1 ESR PT with INR 12.00 H INR 1.06 PTT (Actin FS) 25.2 L Puncture Site ABG pH ABG pCO2 at Pt Temp ABG pO2 at Pt Temp ABG HCO3 ABG O2 Sat (Measured) ABG O2 Content ABG Base Excess Cesar Test VBG pH POC VBG pCO2 POC VBG pO2 Mixed VBG HCO3 Carboxyhemoglobin Methemoglobin O2 Delivery Device Oxygen Flow Rate Vent Mode Vent Rate Mechanical Rate PEEP Pressure Support Vent Sodium Potassium Chloride Carbon Dioxide Anion Gap BUN Creatinine Creat Clearance w eGFR Random Glucose Lactic Acid Calcium Phosphorus Magnesium Total Bilirubin AST ALT Alkaline Phosphatase Creatine Kinase Troponin I C-Reactive Protein Total Protein Albumin Urine Color Hanna Urine Appearance Cloudy Urine pH 7.0 Ur Specific [place] 1.024 Urine Protein 2+ H Urine Glucose (UA) Negative Urine Ketones Negative Urine Blood Negative Urine Nitrite Negative Urine Bilirubin Negative Urine Urobilinogen 4.0 e.u/dl H Ur Leukocyte Esterase 3+ H Urine WBC (Auto) 352 Urine RBC (Auto) 74 Ur Epithelial Cells Rare Urine Bacteria Many Urine Mucus Rare Stool Occult Blood Blood Type Antibody Screen 05/28/17 05/28/17 05/28/17 20:00 20:00 20:00 WBC RBC Hgb Hct MCV MCH MCHC RDW Plt Count MPV Neutrophils % Lymphocytes % Monocytes % Eosinophils % Basophils % ESR PT with INR INR PTT (Actin FS) Puncture Site ABG pH ABG pCO2 at Pt Temp ABG pO2 at Pt Temp ABG HCO3 ABG O2 Sat (Measured) ABG O2 Content ABG Base Excess Cesar Test VBG pH 7.58 H POC VBG pCO2 32.0 L POC VBG pO2 45.5 Mixed VBG HCO3 30.3 H Carboxyhemoglobin Methemoglobin O2 Delivery Device Oxygen Flow Rate Vent Mode Vent Rate Mechanical Rate PEEP Pressure Support Vent Sodium 130 L Potassium 3.6 Chloride 92 L Carbon Dioxide 28 Anion Gap 10 BUN 48 H Creatinine 0.6 Creat Clearance w eGFR > 60 Random Glucose 96 Lactic Acid 1.2 Calcium 8.7 Phosphorus Magnesium Total Bilirubin 0.5 AST 20 ALT 15 Alkaline Phosphatase 151 H Creatine Kinase 38 Troponin I < 0.02 C-Reactive Protein Total Protein 6.8 Albumin 3.2 L Urine Color Urine Appearance Urine pH Ur Specific [place] Urine Protein Urine Glucose (UA) Urine Ketones Urine Blood Urine Nitrite Urine Bilirubin Urine Urobilinogen Ur Leukocyte Esterase Urine WBC (Auto) Urine RBC (Auto) Ur Epithelial Cells Urine Bacteria Urine Mucus Stool Occult Blood Blood Type Antibody Screen 03/05/1605/28/17 05/29/17 20:00 21:20 02:10 WBC RBC Hgb Hct MCV MCH MCHC RDW Plt Count MPV Neutrophils % Lymphocytes % Monocytes % Eosinophils % Basophils % ESR PT with INR INR PTT (Actin FS) Puncture Site Left radial ABG pH 7.57 H ABG pCO2 at Pt Temp 29.8 L ABG pO2 at Pt Temp 80.8 ABG HCO3 27.2 H ABG O2 Sat (Measured) 97.5 ABG O2 Content 15.7 ABG Base Excess 5.5 H Cesar Test Positive VBG pH POC VBG pCO2 POC VBG pO2 Mixed VBG HCO3 Carboxyhemoglobin 1.4 Methemoglobin 0.4 O2 Delivery Device Mech vent Oxygen Flow Rate 30% Vent Mode A/c Vent Rate 14 Mechanical Rate Yes PEEP 5.0 Pressure Support Vent 400 Sodium Potassium Chloride Carbon Dioxide Anion Gap BUN Creatinine Creat Clearance w eGFR Random Glucose Lactic Acid Calcium Phosphorus Magnesium Total Bilirubin AST ALT Alkaline Phosphatase Creatine Kinase Troponin I C-Reactive Protein Total Protein Albumin Urine Color Urine Appearance Urine pH Ur Specific [place] Urine Protein Urine Glucose (UA) Urine Ketones Urine Blood Urine Nitrite Urine Bilirubin Urine Urobilinogen Ur Leukocyte Esterase Urine WBC (Auto) Urine RBC (Auto) Ur Epithelial Cells Urine Bacteria Urine Mucus Stool Occult Blood Negative Blood Type B POSITIVE Antibody Screen Negative 05/29/17 05/29/17 05/29/17 02:14 02:14 02:14 WBC 11.3 H RBC 3.56 L Hgb 10.7 Hct 31.3 L MCV 88.0 MCH 30.0 MCHC 34.1 RDW 15.1 Plt Count 353 MPV 7.8 Neutrophils % 67.5 Lymphocytes % 22.6 Monocytes % 7.3 Eosinophils % 1.6 Basophils % 1.0 ESR PT with INR 12.10 H INR 1.07 PTT (Actin FS) 25.1 L Puncture Site ABG pH ABG pCO2 at Pt Temp ABG pO2 at Pt Temp ABG HCO3 ABG O2 Sat (Measured) ABG O2 Content ABG Base Excess Cesar Test VBG pH POC VBG pCO2 POC VBG pO2 Mixed VBG HCO3 Carboxyhemoglobin Methemoglobin O2 Delivery Device Oxygen Flow Rate Vent Mode Vent Rate Mechanical Rate PEEP Pressure Support Vent Sodium 131 L Potassium 2.9 L* Chloride 92 L Carbon Dioxide 26 Anion Gap 13 BUN 50 H Creatinine 0.6 Creat Clearance w eGFR > 60 Random Glucose 100 Lactic Acid Calcium 9.0 Phosphorus Magnesium Total Bilirubin 0.3 D AST 14 L ALT 14 Alkaline Phosphatase 146 H Creatine Kinase Troponin I C-Reactive Protein Total Protein 6.5 Albumin 3.0 L Urine Color Urine Appearance Urine pH Ur Specific [place] Urine Protein Urine Glucose (UA) Urine Ketones Urine Blood Urine Nitrite Urine Bilirubin Urine Urobilinogen Ur Leukocyte Esterase Urine WBC (Auto) Urine RBC (Auto) Ur Epithelial Cells Urine Bacteria Urine Mucus Stool Occult Blood Blood Type Antibody Screen 05/29/17 05/29/17 05/29/17 06:00 06:00 06:00 WBC RBC Hgb Hct MCV MCH MCHC RDW Plt Count MPV Neutrophils % Lymphocytes % Monocytes % Eosinophils % Basophils % ESR Cancelled PT with INR INR PTT (Actin FS) Puncture Site ABG pH ABG pCO2 at Pt Temp ABG pO2 at Pt Temp ABG HCO3 ABG O2 Sat (Measured) ABG O2 Content ABG Base Excess Cesar Test VBG pH POC VBG pCO2 POC VBG pO2 Mixed VBG HCO3 Carboxyhemoglobin Methemoglobin O2 Delivery Device Oxygen Flow Rate Vent Mode Vent Rate Mechanical Rate PEEP Pressure Support Vent Sodium Potassium Chloride Carbon Dioxide Anion Gap BUN Creatinine Creat Clearance w eGFR Random Glucose Lactic Acid Calcium Phosphorus 3.1 Magnesium 2.3 Total Bilirubin AST ALT Alkaline Phosphatase Creatine Kinase Troponin I C-Reactive Protein 0.6 H Total Protein Albumin Urine Color Urine Appearance Urine pH Ur Specific [place] Urine Protein Urine Glucose (UA) Urine Ketones Urine Blood Urine Nitrite Urine Bilirubin Urine Urobilinogen Ur Leukocyte Esterase Urine WBC (Auto) Urine RBC (Auto) Ur Epithelial Cells Urine Bacteria Urine Mucus Stool Occult Blood Blood Type Antibody Screen 05/29/17 05/29/17 06:00 08:00 WBC RBC Hgb Hct MCV MCH MCHC RDW Plt Count MPV Neutrophils % Lymphocytes % Monocytes % Eosinophils % Basophils % ESR PT with INR INR PTT (Actin FS) Puncture Site ABG pH ABG pCO2 at Pt Temp ABG pO2 at Pt Temp ABG HCO3 ABG O2 Sat (Measured) ABG O2 Content ABG Base Excess Cesar Test VBG pH POC VBG pCO2 POC VBG pO2 Mixed VBG HCO3 Carboxyhemoglobin Methemoglobin O2 Delivery Device Oxygen Flow Rate Vent Mode Vent Rate Mechanical Rate PEEP Pressure Support Vent Sodium 131 L Potassium 3.3 L Chloride 92 L Carbon Dioxide 25 Anion Gap 14 BUN 46 H Creatinine 0.6 Creat Clearance w eGFR Random Glucose 92 Lactic Acid Calcium 9.1 Phosphorus Magnesium Total Bilirubin AST ALT Alkaline Phosphatase Creatine Kinase Troponin I C-Reactive Protein Total Protein Albumin Urine Color Yellow Urine Appearance Clear Urine pH 5.0 D Ur Specific [place] > 1.060 H Urine Protein Negative Urine Glucose (UA) Negative Urine Ketones 1+ H Urine Blood 1+ H Urine Nitrite Negative Urine Bilirubin Negative Urine Urobilinogen 2.0 H Ur Leukocyte Esterase 2+ H Urine WBC (Auto) 36 Urine RBC (Auto) 5 Ur Epithelial Cells Rare Urine Bacteria Urine Mucus Rare Stool Occult Blood Blood Type Antibody Screen Imaging - Results Cat Scan: Report Reviewed Problem List - Problems (1) Fecal impaction in rectum Code(s): K56.41 - FECAL IMPACTION (2) Fecal impaction of colon Code(s): K56.41 - FECAL IMPACTION (3) Chronic respiratory failure Code(s): J96.10 - CHRONIC RESPIRATORY FAILURE, UNSP W HYPOXIA OR HYPERCAPNIA (4) Supranuclear palsy Code(s): G23.1 - PROGRESSIVE SUPRANUCLEAR OPHTHALMOPLEGIA (5) UTI (urinary tract infection) Code(s): N39.0 - URINARY TRACT INFECTION, SITE NOT SPECIFIED Qualifiers: Urinary tract infection type: catheter-associated UTI Indwelling urinary catheter type: indwelling urethral catheter Encounter type: initial encounter Qualified Code(s): T83.511A - Infection and inflammatory reaction due to indwelling urethral catheter, initial encounter; N39.0 - Urinary tract infection , site not specified; N39.0 - Urinary tract infection, site not specified Assessment/Plan Tap water enema x 3-4, or until adequate return q30 min Miramax tid via PEG Bowel rest except for medications G-tube to low intermittent suction today. Hold for 1 hr after meds given
[2017-05-29] MEDS ORDERED: KCL 10 MEQ IVPB 10 MEQ/100 ML INFUS.BAG IVPB SCH (19:00)
[2017-05-29] MEDS: SILVER SULFADIAZINE 1% TOP CREAM 50 GM JAR TP SCH (19:04)
[2017-05-29] MEDS: NYSTATIN/TRIAMCINOLONE TOPICAL CREAM 15 GM TUBE TP SCH (19:04)
--- NOTE | 2017-05-29 19:29 | PN ---
Progress Note, Physician History of Present Illness: ID Consult dictated UTI, possible sepsis secondary to UTI Bilateral pleural effusions ? pneumonia Chronic respiratory failure Pending c/s continue empiric ceftriaxone - Current Medication List Current Medications: Active Medications Acetaminophen (Tylenol Oral Solution -) 650 mg GT Q6H PRN PRN Reason: PAIN Last Admin: 05/29/17 12:22 Dose: 650 mg Albuterol/Ipratropium (Duoneb -) 1 amp NEB RQID [facility] Last Admin: 05/29/17 16:45 Dose: 1 amp Artificial Tears (Artificial Tears) 1 drop OU BID [facility] Last Admin: 05/29/17 11:27 Dose: Not Given Heparin Sodium (Porcine) (Heparin -) 5,000 unit SQ TID [facility] Last Admin: 05/29/17 14:57 Dose: 5,000 unit CEFTRIAXONE 1 G/50 ML PREMIX (Ceftriaxone 1 Gm-D5w Bag) 50 mls @ 100 mls/hr IVPB DAILY [facility] Potassium Chloride 10 meq/ (Sodium Chloride) 105 mls @ 105 mls/hr IVPB Q60M [facility] Stop: 05/29/17 21:14 Midodrine (Proamatine -) 10 mg GT TID-MID [facility] Last Admin: 05/29/17 18:35 Dose: 10 mg Mirtazapine (Remeron -) 30 mg GT HS [facility] Nystatin/Triamcinolone Acetonide (Mycolog Ii Cream -) 1 applic TP DAILY [facility] Last Admin: 05/29/17 19:04 Dose: Not Given Paroxetine HCl (Paxil -) 40 mg NR DAILY [facility] Last Admin: 05/29/17 11:30 Dose: 40 mg Polyethylene Glycol (Miralax (For Daily Use) -) 17 gm PO TID [facility] Ranitidine HCl (Zantac Oral Solution -) 150 mg GT BID [facility] Last Admin: 05/29/17 11:31 Dose: 150 mg Senna (Senna Oral Solution -) 17.6 mg GT HS [facility] Silver Sulfadiazine (Silvadene -) 1 applic TP DAILY [facility] Last Admin: 05/29/17 19:04 Dose: Not Given - Objective Vital Signs: Vital Signs Temperature 99.4 F 05/29/17 18:00 Pulse Rate 97 H 05/29/17 18:10 Respiratory Rate 18 05/29/17 18:10 Blood Pressure 137/65 05/29/17 18:10 O2 Sat by Pulse Oximetry (%) 99 05/29/17 13:00 Labs: CBC, BMP 05/29/17 02:14 05/29/17 06:00 INR, PTT INR 1.07 (0.82-1.09) 05/29/17 02:14
[2017-05-29] MEDS: CEFTRIAXONE 1 G/50 ML PREMIX 50 ML IVPB SCH (20:31)
[2017-05-29] MEDS: POTASSIUM CHLORIDE 10 MEQ in SODIUM CHLORIDE 100 ML IVPB SCH (20:37)
[2017-05-29] MEDS: POLYETHYLENE GLYCOL 3350 119 GM BTL PO SCH (21:43)
[2017-05-29] MEDS: MIRTAZAPINE 15 MG TABLET (FP) GT SCH (21:44)
[2017-05-29] MEDS: SENNOSIDES 8.8 MG/5 ML BULK BOTTLE GT SCH (21:45)
[2017-05-29] MEDS ORDERED: SENNOSIDES 8.6MG TABLET (FP) PO SCH (22:00)
[2017-05-30] MEDS: ACETAMINOPHEN 650 MG/20.3 ML ORAL SOLUTION (CUPS) GT PRN (06:20)
[2017-05-30] MEDS: HEPARIN NA (PORCINE) 5,000 UNITS/ML 1ML VIAL SQ SCH ×3 (06:20→22:07)
[2017-05-30] MEDS: POLYETHYLENE GLYCOL 3350 119 GM BTL PO SCH ×3 (06:21→22:08)
[2017-05-30 06:36] LABS: BASO % 0.9 % (0-2.0); EOS % 0.3 % (0-4.5); HEMATOCRIT 28.8 % (32.4-45.2); HEMOGLOBIN 9.7 GM/dL (10.7-15.3); LYMPH % 22.5 % (8-40); MCH 29.9 pg (25.7-33.7); MCHC 33.8 g/dl (32.0-36.0); MEAN CELL VOLUME 88.3 fl (80-96); MEAN PLT VOLUME 8.7 fl (7.5-11.1); MONO % 5.7 % (3.8-10.2); NEUT % 70.6 % (42.8-82.8); PLATELET COUNT 342 K/MM3 (134-434); RBC 3.26 M/mm3 (3.60-5.2); RDW 15.1 % (11.6-15.6); WHITE BLOOD COUNT 13.2 K/mm3 (4.0-10.0)
[2017-05-30 07:06] LABS: ALBUMIN 2.9 g/dl (3.4-5.0); ANION GAP 16 (8-16); BILIRUBIN,TOTAL 0.4 mg/dL (0.2-1.0); BLOOD UREA NITROGEN 38 mg/dL (7-18); CHLORIDE 92 mmol/L (98-107); CO2 25 mmol/L (21-32); GLUCOSE,RANDOM 79 mg/dL (74-106); SGOT/AST 13 U/L (15-37); SGPT/ALT 11 U/L (12-78); SODIUM 133 mmol/L (136-145)
[2017-05-30 07:07] LABS: ALK PHOS 127 U/L (45-117); CALCIUM 8.7 mg/dL (8.5-10.1); CREATININE 0.4 mg/dL (0.55-1.02); MAGNESIUM 2.5 mg/dL (1.8-2.4)
[2017-05-30] MEDS: ALBUTEROL SO4 2.5/IPRATROPIUM 0.5 INH SOL 3 ML VIAL.NEB. NEB SCH ×4 (08:20→20:00)
--- NOTE | 2017-05-30 09:50 | PN ---
Progress Note, Physician History of Present Illness: Poorly responsive on ventilator No acute distress Low grade fevers BC + GPCCL one of four bottles Urine c/s mixed lora - Current Medication List Current Medications: Active Medications Acetaminophen (Tylenol Oral Solution -) 650 mg GT Q6H PRN PRN Reason: PAIN Last Admin: 05/30/17 06:20 Dose: 650 mg Albuterol/Ipratropium (Duoneb -) 1 amp NEB RQID [facility] Last Admin: 05/29/17 20:40 Dose: 1 amp Artificial Tears (Artificial Tears) 1 drop OU BID [facility] Last Admin: 05/29/17 21:36 Dose: 1 drop Heparin Sodium (Porcine) (Heparin -) 5,000 unit SQ TID [facility] Last Admin: 05/30/17 06:20 Dose: 5,000 unit CEFTRIAXONE 1 G/50 ML PREMIX (Ceftriaxone 1 Gm-D5w Bag) 50 mls @ 100 mls/hr IVPB DAILY [facility] Last Admin: 05/29/17 20:31 Dose: 100 mls/hr Potassium Chloride 10 meq/ (Sodium Chloride) 105 mls @ 100 mls/hr IVPB Q60M [facility] Stop: 05/30/17 11:59 Midodrine (Proamatine -) 10 mg GT TID-MID [facility] Last Admin: 05/29/17 18:35 Dose: 10 mg Mirtazapine (Remeron -) 30 mg GT HS [facility] Last Admin: 05/29/17 21:44 Dose: 30 mg Nystatin/Triamcinolone Acetonide (Mycolog Ii Cream -) 1 applic TP DAILY [facility] Last Admin: 05/29/17 19:04 Dose: Not Given Paroxetine HCl (Paxil -) 40 mg NR DAILY [facility] Last Admin: 05/29/17 11:30 Dose: 40 mg Polyethylene Glycol (Miralax (For Daily Use) -) 17 gm PO TID [facility] Last Admin: 05/30/17 06:21 Dose: 17 gm Ranitidine HCl (Zantac Oral Solution -) 150 mg GT BID [facility] Last Admin: 05/29/17 21:44 Dose: 150 mg Senna (Senna Oral Solution -) 17.6 mg GT HS [facility] Last Admin: 05/29/17 21:45 Dose: 17.6 mg Silver Sulfadiazine (Silvadene -) 1 applic TP DAILY [facility] Last Admin: 05/29/17 19:04 Dose: Not Given - Objective Vital Signs: Vital Signs Temperature 100.5 F H 05/30/17 06:00 Pulse Rate 92 H 05/30/17 06:00 Respiratory Rate 22 05/30/17 07:00 Blood Pressure 116/70 05/30/17 06:00 O2 Sat by Pulse Oximetry (%) 97 05/30/17 00:23 Constitutional: Yes: No Distress Eyes: Yes: Conjunctiva Clear Cardiovascular: Yes: Regular Rate and Rhythm, S1, S2 Respiratory: Yes: Mechanically Ventilated Gastrointestinal: Yes: Normal Bowel Sounds, Soft. No: Tenderness Extremities: Yes: Other (+ UE contractures) Edema: Yes Edema: LLE: 1+, RLE: 1+ Labs: CBC, BMP 05/30/17 05:00 05/30/17 05:00 INR, PTT INR 1.07 (0.82-1.09) 05/29/17 02:14 Assessment/Plan UTI/ Possible sepsis secondary to UTI +BC ? significance Chronic respiratory failure Bilateral effusions ? pneumonia Await urine, blood c/s Repeat BC Continue ceftriaxone. Add vancomycin pending c/s
[2017-05-30] MEDS ORDERED: PT OWN MED DRAWER 7, Y5N ONE ×2 (10:18→21:58)
[2017-05-30] MEDS: ARTIFICIAL TEARS (POLYVINYL ALCOHOL 1.4%) OPTH DROPS OU SCH ×2 (10:34→22:06)
[2017-05-30] MEDS: MIDODRINE HCL 5 MG TABLET GT SCH ×3 (10:35→17:19)
[2017-05-30] MEDS: PARoxetine HCL 20 MG TABLET (FP) NR SCH (10:35)
[2017-05-30] MEDS: CEFTRIAXONE 1 G/50 ML PREMIX 50 ML IVPB SCH (10:35)
[2017-05-30] MEDS: RANITIDINE HCL 150 MG/10 ML UNIT-DOSE GT SCH ×2 (10:36→22:05)
[2017-05-30] MEDS: SILVER SULFADIAZINE 1% TOP CREAM 50 GM JAR TP SCH (10:39)
[2017-05-30] MEDS: NYSTATIN/TRIAMCINOLONE TOPICAL CREAM 15 GM TUBE TP SCH (10:39)
[2017-05-30] MEDS: VANCOMYCIN 1,000 MG in DEXTROSE 5%-WATER - 250 ML IVPB SCH ×2 (11:41→22:04)
--- NOTE | 2017-05-30 12:02 | PN ---
<Phyllis Shearer - Last Filed: 05/30/17 17:16> Physical Exam: SUBJECTIVE: Patient seen and examined. Non verbal, lying i bed. OBJECTIVE: Vital Signs Period Temp Pulse Resp BP Sys/Mandel Pulse Ox Last 24 Hr 99.3 F-100.5 F 70-103 9-22 104-137/65-81 96-99 GENERAL: The patient is lying in bed, eyes closed, non verbal, no acute distress noted, no diaphoresis. HEAD: Normal with no signs of trauma. EYES: extraocular movements not assessed, sclera anicteric, conjunctiva clear. ENT: oropharynx clear without exudates, moist mucous membranes. NECK: Trachea midline, full range of motion, supple, trach applied. LUNGS: coarse bilaterally, no wheezes, no accessory muscle use, no skin changes , rash. HEART: Regular rate and rhythm, S1, S2 without murmur, rub or gallop. ABDOMEN: Soft, non tender, non distended, normoactive bowel sounds, no guarding , no rebound, PEG tube present-n skin rash, EXTREMITIES: 2+ pulses, warm, no edema. NEUROLOGICAL: not oriented, eyes closed, nt following commands, gait not observed. PSYCH: Normal mood, normal affect. SKIN: Warm, dry, normal turgor, no rashes. Laboratory Results - last 24 hr 05/30/17 05/30/17 05:00 05:00 WBC 13.2 H RBC 3.26 L Hgb 9.7 L Hct 28.8 L MCV 88.3 MCH 29.9 MCHC 33.8 RDW 15.1 Plt Count 342 MPV 8.7 D Neutrophils % 70.6 Lymphocytes % 22.5 Monocytes % 5.7 Eosinophils % 0.3 D Basophils % 0.9 Sodium 133 L Potassium 3.0 L Chloride 92 L Carbon Dioxide 25 Anion Gap 16 BUN 38 H Creatinine 0.4 L Creat Clearance w eGFR > 60 Random Glucose 79 Calcium 8.7 Magnesium 2.5 H Total Bilirubin 0.4 D AST 13 L ALT 11 L Alkaline Phosphatase 127 H Total Protein 6.0 L Albumin 2.9 L Active Medications Generic Name Dose Route Start Last Admin Trade Name Freq PRN Reason Stop Dose Admin Acetaminophen 650 mg 05/29/17 01:56 05/30/17 06:20 Tylenol Oral Solution - GT 650 mg Q6H PRN Administration PAIN Albuterol/Ipratropium 1 amp 05/29/17 08:00 05/30/17 08:20 Duoneb - NEB 1 amp RQID [facility] Administration Artificial Tears 1 drop 05/29/17 10:00 05/30/17 10:34 Artificial Tears OU 1 drop BID [facility] Administration Heparin Sodium (Porcine) 5,000 unit 05/29/17 06:00 05/30/17 06:20 Heparin - SQ 5,000 unit TID [facility] Administration CEFTRIAXONE 1 G/50 ML PREMIX 50 mls @ 100 mls/hr 05/29/17 19:15 05/30/17 10: 35 Ceftriaxone 1 Gm-D5w Bag IVPB 100 mls/hr DAILY [facility] Administration Vancomycin HCl 1,000 mg/ 250 mls @ 200 mls/hr 05/30/17 10:00 05/30/17 11:41 Dextrose IVPB 200 mls/hr BID [facility] Administration Midodrine 10 mg 05/29/17 10:00 05/30/17 10:35 Proamatine - GT 10 mg TID-MID [facility] Administration Mirtazapine 30 mg 05/29/17 22:00 05/29/17 21:44 Remeron - GT 30 mg HS [facility] Administration Nystatin/Triamcinolone Acetonide 1 applic 05/29/17 10:00 05/30/17 10:39 Mycolog Ii Cream - TP 1 applic DAILY [facility] Administration Paroxetine HCl 40 mg 05/29/17 10:00 05/30/17 10:35 Paxil - NR 40 mg DAILY [facility] Administration Polyethylene Glycol 17 gm 05/29/17 22:00 05/30/17 06:21 Miralax (For Daily Use) - PO 17 gm TID [facility] Administration Ranitidine HCl 150 mg 05/29/17 10:00 05/30/17 10:36 Zantac Oral Solution - GT 150 mg BID [facility] Administration Senna 17.6 mg 05/29/17 22:00 05/29/17 21:45 Senna Oral Solution - GT 17.6 mg HS [facility] Administration Silver Sulfadiazine 1 applic 05/29/17 10:00 05/30/17 10:39 Silvadene - TP 1 applic DAILY [facility] Administration ASSESSMENT/PLAN: 76 year old female with history of supranuclear palsy admitted from half-way for evaluation of possible infection was found to be septic. sepsis -possibly due to UTI, less likely due to aspiration pneumonia vs another sources -fever, tachy, elevated WBC on admission, UA positive for infection -chronic alvarez catheter -T max 100.5 F -Urine culture positive for non lactose fermenting GnB, lactose ferm. neg bacilli, Group D strep -Blood culture pending Staph in one bottle -will continue Rocephin ad Vancomycin was started by Dr Banuelos, -f/u ID recommendations -CRP 0.6 -CXR today unchanged Constipation: -continue Miralax, Senna, -abdominal x ray -f/u GI recommendations Hyponatremia -NA 130, improved Stage II decubitus ulcer -erythema with skin exfoliation but no signs of infection -topical radha oxide -change position q 2hr COPD -DUO nebs -O2 to keep O2 sat >90 % FEN: no/no/NPO DVT PPX: -scds, -Heparin 5000 u Sq Dispo: med surg Problem List - Problems (1) Chronic respiratory failure Code(s): J96.10 - CHRONIC RESPIRATORY FAILURE, UNSP W HYPOXIA OR HYPERCAPNIA (2) Supranuclear palsy Code(s): G23.1 - PROGRESSIVE SUPRANUCLEAR OPHTHALMOPLEGIA (3) UTI (urinary tract infection) Code(s): N39.0 - URINARY TRACT INFECTION, SITE NOT SPECIFIED QualifierTitle: Urinary tract infection type: catheter-associated UTI Indwelling urinary catheter type: indwelling urethral catheter Encounter type : initial encounter Qualified Code(s): T83.511A - Infection and inflammatory reaction due to indwelling urethral catheter, initial encounter; N39.0 - Urinary tract infection, site not specified; N39.0 - Urinary tract infection, site not specified Visit type - Emergency Visit Emergency Visit: Yes ED Registration Date: 05/29/17 Care time: The patient presented to the Emergency Department on the above date and was hospitalized for further evaluation of their emergent condition. - New Patient This patient is new to me today: Yes Date on this admission: 05/30/17 - Critical Care Critical Care patient: No - Discharge Referral Referred to [facility] No <Manuel Alba - Last Filed: 05/30/17 19:00> Physical Exam: agree with the resident's note Vital Signs Temperature 99.0 F 05/30/17 18:00 Pulse Rate 84 05/30/17 18:00 Respiratory Rate 18 05/30/17 18:00 Blood Pressure 103/61 05/30/17 18:00 O2 Sat by Pulse Oximetry (%) 97 05/30/17 00:23 CBCD WBC 13.2 K/mm3 (4.0-10.0) H 05/30/17 05:00 RBC 3.26 M/mm3 (3.60-5.2) L 05/30/17 05:00 Hgb 9.7 GM/dL (10.7-15.3) L 05/30/17 05:00 Hct 28.8 % (32.4-45.2) L 05/30/17 05:00 MCV 88.3 fl (80-96) 05/30/17 05:00 MCHC 33.8 g/dl (32.0-36.0) 05/30/17 05:00 RDW 15.1 % (11.6-15.6) 05/30/17 05:00 Plt Count 342 K/MM3 (134-434) 05/30/17 05:00 MPV 8.7 fl (7.5-11.1) D 05/30/17 05:00 CMP Sodium 133 mmol/L (136-145) L 05/30/17 05:00 Potassium 3.0 mmol/L (3.5-5.1) L 05/30/17 05:00 Chloride 92 mmol/L (98-107) L 05/30/17 05:00 Carbon Dioxide 25 mmol/L (21-32) 05/30/17 05:00 Anion Gap 16 (8-16) 05/30/17 05:00 BUN 38 mg/dL (7-18) H 05/30/17 05:00 Creatinine 0.4 mg/dL (0.55-1.02) L 05/30/17 05:00 Creat Clearance w eGFR > 60 (>60) 05/30/17 05:00 Random Glucose 79 mg/dL (74-106) 05/30/17 05:00 Calcium 8.7 mg/dL (8.5-10.1) 05/30/17 05:00 Total Bilirubin 0.4 mg/dL (0.2-1.0) D 05/30/17 05:00 AST 13 U/L (15-37) L 05/30/17 05:00 ALT 11 U/L (12-78) L 05/30/17 05:00 Alkaline Phosphatase 127 U/L (45-117) H 05/30/17 05:00 Total Protein 6.0 g/dl (6.4-8.2) L 05/30/17 05:00 Albumin 2.9 g/dl (3.4-5.0) L 05/30/17 05:00 CARDIAC ENZYMES Creatine Kinase 38 IU/L (26-192) 05/28/17 20:00 Troponin I < 0.02 ng/ml (0.00-0.05) 05/28/17 20:00 Current Medications Generic Name Dose Route Start Last Admin Trade Name Freq PRN Reason Stop Dose Admin Acetaminophen 650 mg 05/29/17 01:56 05/30/17 06:20 Tylenol Oral Solution - GT 650 mg Q6H PRN Administration PAIN Albuterol/Ipratropium 1 amp 05/29/17 08:00 05/30/17 16:44 Duoneb - NEB 1 amp RQID [facility] Administration Artificial Tears 1 drop 05/29/17 10:00 05/30/17 10:34 Artificial Tears OU 1 drop BID [facility] Administration Heparin Sodium (Porcine) 5,000 unit 05/29/17 06:00 05/30/17 15:27 Heparin - SQ 5,000 unit TID [facility] Administration CEFTRIAXONE 1 G/50 ML PREMIX 50 mls @ 100 mls/hr 05/29/17 19:15 05/30/17 10: 35 Ceftriaxone 1 Gm-D5w Bag IVPB 100 mls/hr DAILY [facility] Administration Vancomycin HCl 1,000 mg/ 250 mls @ 200 mls/hr 05/30/17 10:00 05/30/17 11:41 Dextrose IVPB 200 mls/hr BID [facility] Administration Midodrine 10 mg 05/29/17 10:00 05/30/17 17:19 Proamatine - GT 10 mg TID-MID [facility] Administration Mirtazapine 30 mg 05/29/17 22:00 05/29/17 21:44 Remeron - GT 30 mg HS [facility] Administration Nystatin/Triamcinolone Acetonide 1 applic 05/29/17 10:00 05/30/17 10:39 Mycolog Ii Cream - TP 1 applic DAILY [facility] Administration Paroxetine HCl 40 mg 03/03/18 10:00 05/30/17 10:35 Paxil - NR 40 mg DAILY [facility] Administration Polyethylene Glycol 17 gm 05/29/17 22:00 05/30/17 15:28 Miralax (For Daily Use) - PO 17 gm TID [facility] Administration Ranitidine HCl 150 mg 05/29/17 10:00 05/30/17 10:36 Zantac Oral Solution - GT 150 mg BID [facility] Administration Senna 17.6 mg 05/29/17 22:00 05/29/17 21:45 Senna Oral Solution - GT 17.6 mg HS [facility] Administration Silver Sulfadiazine 1 applic 05/29/17 10:00 05/30/17 10:39 Silvadene - TP 1 applic DAILY [facility] Administration Home Medications Medication Instructions Recorded Acetaminophen [Tylenol] 650 mg GT QID PRN 05/25/17 Albuterol 2.5/Ipratropium 0.5 1 neb IH QID 05/25/17 [Duoneb -] Bismuth Tribromoph/Petrolatum 1 each TP DAILY 05/25/17 [Xeroform Petrolatum Dress] Heparin - 5,000 unit SQ BID 05/25/17 Midodrine HCl 10 mg GT Q8H 05/25/17 Mirtazapine [Remeron -] 30 mg GT HS 05/25/17 Nystatin/Triamcin 15 gm TP DAILY 05/25/17 [Nystatin-Triamcinolone Cream] Olopatadine HCl [Patanol] 1 drop OD BID 05/25/17 Paroxetine HCl [Paxil] 40 mg GT DAILY 05/25/17 Polyethylene Glycol 3350 [Miralax 17 gm GT DAILY 05/25/17 (For Bowel Prep) -] Sennosides [Senna] 2 tab GT HS 05/25/17 Silver Sulfadiazine 1% Top Cr 1 applic TP DAILY 05/25/17 [Silvadene -] Albuterol 2.5/Ipratropium 0.5 1 amp IH QID 05/28/17 [Duoneb -] Famotidine 20 mg PO BID 05/28/17 Hypromellose 0.5% Opth Soln 1 drop OU BID 05/28/17 [Artificial Tears] Tuberculin,Purif.prot.deriv. 05/28/17 [Tubersol] Microbiology 05/28/17 19:55 Blood - Peripheral Venous Blood Culture - Preliminary Pending Organism 05/28/17 20:00 Urine - Urine - Catheterized Urine Culture - Preliminary Non Lactose Fermenting Gnb Lactose Fermenting Neg Bacilli Group D Strep Or Entero Coccus 05/28/17 20:00 Blood - Peripheral Venous Blood Culture - Preliminary NO GROWTH OBTAINED AFTER 24 HOURS, INCUBATION TO CONTINUE FOR 4 DAYS. Added Vancomycin for possible gram positive bacteremia as per ID
--- NOTE | 2017-05-30 12:55 | PN ---
Progress Note (short form) - Note Progress Note: PULMONARY Low grade temps. Urine culture polymicrobial and blood culture with gram positive cocci. Tolerating SIMV RR 8, PS 12. Last Vital Signs Temp Pulse Resp BP Pulse Ox 100.5 F H 92 H 10 L 116/70 97 05/30/17 06:00 05/30/17 06:00 05/30/17 11:59 05/30/17 06:00 05/30/17 00:23 Gen: vented, NAD Heart: RRR Lung: decreased breath sounds at the bases Abd: softly distended, nontender Ext: contracted, no edema CBC, BMP 05/30/17 05:00 05/30/17 05:00 Active Medications Acetaminophen (Tylenol Oral Solution -) 650 mg GT Q6H PRN PRN Reason: PAIN Last Admin: 05/30/17 06:20 Dose: 650 mg Albuterol/Ipratropium (Duoneb -) 1 amp NEB RQID [facility] Last Admin: 05/30/17 08:20 Dose: 1 amp Artificial Tears (Artificial Tears) 1 drop OU BID [facility] Last Admin: 05/30/17 10:34 Dose: 1 drop Heparin Sodium (Porcine) (Heparin -) 5,000 unit SQ TID [facility] Last Admin: 05/30/17 06:20 Dose: 5,000 unit CEFTRIAXONE 1 G/50 ML PREMIX (Ceftriaxone 1 Gm-D5w Bag) 50 mls @ 100 mls/hr IVPB DAILY [facility] Last Admin: 05/30/17 10:35 Dose: 100 mls/hr Vancomycin HCl 1,000 mg/ (Dextrose) 250 mls @ 200 mls/hr IVPB BID [facility] Last Admin: 05/30/17 11:41 Dose: 200 mls/hr Midodrine (Proamatine -) 10 mg GT TID-MID [facility] Last Admin: 05/30/17 10:35 Dose: 10 mg Mirtazapine (Remeron -) 30 mg GT HS [facility] Last Admin: 05/29/17 21:44 Dose: 30 mg Nystatin/Triamcinolone Acetonide (Mycolog Ii Cream -) 1 applic TP DAILY [facility] Last Admin: 05/30/17 10:39 Dose: 1 applic Paroxetine HCl (Paxil -) 40 mg NR DAILY [facility] Last Admin: 05/30/17 10:35 Dose: 40 mg Polyethylene Glycol (Miralax (For Daily Use) -) 17 gm PO TID [facility] Last Admin: 05/30/17 06:21 Dose: 17 gm Ranitidine HCl (Zantac Oral Solution -) 150 mg GT BID [facility] Last Admin: 05/30/17 10:36 Dose: 150 mg Senna (Senna Oral Solution -) 17.6 mg GT HS [facility] Last Admin: 05/29/17 21:45 Dose: 17.6 mg Silver Sulfadiazine (Silvadene -) 1 applic TP DAILY [facility] Last Admin: 05/30/17 10:39 Dose: 1 applic A/P UTI Supranuclear Palsy Vent Dependent Respiratory Failure r/o CHF Hyponatremia - IV antibiotics - f/u cultures - monitor urine output, creatinine - monitor CXR - continue SIMV, decreased back up rate to 6, PS 10 - consider enema, disimpaction - enteral feeds - DVT prophylaxis Problem List - Problems (1) UTI (urinary tract infection) Code(s): N39.0 - URINARY TRACT INFECTION, SITE NOT SPECIFIED Qualifiers: Urinary tract infection type: catheter-associated UTI Indwelling urinary catheter type: indwelling urethral catheter Encounter type: initial encounter Qualified Code(s): T83.511A - Infection and inflammatory reaction due to indwelling urethral catheter, initial encounter; N39.0 - Urinary tract infection , site not specified; N39.0 - Urinary tract infection, site not specified (2) Chronic respiratory failure Code(s): J96.10 - CHRONIC RESPIRATORY FAILURE, UNSP W HYPOXIA OR HYPERCAPNIA
[2017-05-30] MEDS: POTASSIUM CHLORIDE 10 MEQ in SODIUM CHLORIDE 100 ML IVPB SCH ×2 (13:27→15:27)
--- NOTE | 2017-05-30 14:40 | CONS ---
DATE OF CONSULTATION: 05/29/2017 HISTORY: The patient is a 76-year-old female with a history of supranuclear palsy, chronic respiratory failure on the ventilator evaluated for sepsis. History was obtained from the chart as she cannot give a history secondary to her mental status. She had apparently been hospitalized at [facility] for 4-5 weeks and treated for pneumonia and sepsis. She was transferred to the long term for senior living care. She was noted to have fever at the long term. A urinary tract infection with proteus was diagnosed. She was treated with a 7-day course of Bactrim. Despite the oral antibiotics, she continued to have fever and was transferred to the hospital for admission. On presentation here, the patient was noted to be febrile with an elevated white blood cell count, cloudy urine, and a chest x-ray with bibasilar effusions. She offers no complaints. PAST MEDICAL HISTORY: Positive for chronic respiratory failure on ventilator, supranuclear palsy, bipolar disorder, COPD, history of urinary retention with chronic indwelling Garibay catheter. PAST SURGICAL HISTORY: Status post feeding gastrostomy, tracheostomy, and right total knee replacement. ALLERGIES: LEVAQUIN. MEDICATIONS: Include Tylenol, albuterol, Remeron, Paxil, Bactrim. SOCIAL HISTORY: shelter resident. Dependent in activities of daily living. No history of tobacco use. SYSTEMS REVIEW: Neurologic: As per HPI. Cardiac: Negative chest pain or palpitations. Respiratory: Chronic respiratory failure. Gastrointestinal: Status post feeding gastrostomy. Genitourinary: Urinary retention with chronic indwelling Garibay catheter. LABORATORY DATA: White count 11.3, hematocrit 31.3, platelet count 353, BUN 50, creatinine 0.6. Urinalysis 352 white cells. Chest x-ray shows bilateral pleural effusions, possible infiltrates. PHYSICAL EXAMINATION: General: She is poorly responsive. Vital Signs: Temperature 100.8, blood pressure 111/71, pulse 91 and regular, respirations 16 per minute. HEENT: Sclerae anicteric. Heart: Sounds S1, S2. Lungs: Air entry bilaterally. Abdomen: Soft. No tenderness elicited. No mass, rebound, or rigidity. Feeding gastrostomy tube is in place. Extremities: Positive for edema 1+. A stage 2 decubitus ulcer present. IMPRESSION: 1. Urinary tract infection, possible sepsis secondary to urinary tract infection. 2. Bibasilar pleural effusions, possible pneumonia. 3. Chronic respiratory failure. 4. Fever, leukocytosis. Urine culture from long term reviewed. Patient with positive urine culture for proteus sensitive to ceftriaxone. Continue ceftriaxone IV piggyback daily pending culture results. Further recommendations pending sepsis workup. Will follow. LEXI MARINELLI M.D. [id number]
--- NOTE | 2017-05-30 17:00 | PN ---
Progress Note, Physician History of Present Illness: had good response to tap water enema last night. G-tube to suction draining coffee-ground material, no loki blood per G-tube, or melanitic stools reported. Abdomen soft, non-tender. - Current Medication List Current Medications: Active Medications Acetaminophen (Tylenol Oral Solution -) 650 mg GT Q6H PRN PRN Reason: PAIN Last Admin: 05/30/17 06:20 Dose: 650 mg Albuterol/Ipratropium (Duoneb -) 1 amp NEB RQID [facility] Last Admin: 05/30/17 16:44 Dose: 1 amp Artificial Tears (Artificial Tears) 1 drop OU BID [facility] Last Admin: 05/30/17 10:34 Dose: 1 drop Heparin Sodium (Porcine) (Heparin -) 5,000 unit SQ TID [facility] Last Admin: 05/30/17 15:27 Dose: 5,000 unit CEFTRIAXONE 1 G/50 ML PREMIX (Ceftriaxone 1 Gm-D5w Bag) 50 mls @ 100 mls/hr IVPB DAILY [facility] Last Admin: 05/30/17 10:35 Dose: 100 mls/hr Vancomycin HCl 1,000 mg/ (Dextrose) 250 mls @ 200 mls/hr IVPB BID [facility] Last Admin: 05/30/17 11:41 Dose: 200 mls/hr Midodrine (Proamatine -) 10 mg GT TID-MID [facility] Last Admin: 05/30/17 15:28 Dose: 10 mg Mirtazapine (Remeron -) 30 mg GT HS [facility] Last Admin: 05/29/17 21:44 Dose: 30 mg Nystatin/Triamcinolone Acetonide (Mycolog Ii Cream -) 1 applic TP DAILY [facility] Last Admin: 05/30/17 10:39 Dose: 1 applic Paroxetine HCl (Paxil -) 40 mg NR DAILY [facility] Last Admin: 05/30/17 10:35 Dose: 40 mg Polyethylene Glycol (Miralax (For Daily Use) -) 17 gm PO TID [facility] Last Admin: 05/30/17 15:28 Dose: 17 gm Ranitidine HCl (Zantac Oral Solution -) 150 mg GT BID [facility] Last Admin: 05/30/17 10:36 Dose: 150 mg Senna (Senna Oral Solution -) 17.6 mg GT HS [facility] Last Admin: 05/29/17 21:45 Dose: 17.6 mg Silver Sulfadiazine (Silvadene -) 1 applic TP DAILY [facility] Last Admin: 05/30/17 10:39 Dose: 1 applic - Objective Vital Signs: Vital Signs Temperature 98.6 F 05/30/17 12:55 Pulse Rate 75 05/30/17 12:55 Respiratory Rate 9 L 05/30/17 16:05 Blood Pressure 110/60 05/30/17 12:55 O2 Sat by Pulse Oximetry (%) 97 05/30/17 00:23 Constitutional: Yes: Well Nourished, No Distress, Calm Gastrointestinal: Yes: Soft. No: Distention, Tenderness, Vomiting Labs: CBC, BMP 05/30/17 05:00 05/30/17 05:00 INR, PTT INR 1.07 (0.82-1.09) 05/29/17 02:14 CBCD WBC 13.2 K/mm3 (4.0-10.0) H 05/30/17 05:00 RBC 3.26 M/mm3 (3.60-5.2) L 05/30/17 05:00 Hgb 9.7 GM/dL (10.7-15.3) L 05/30/17 05:00 Hct 28.8 % (32.4-45.2) L 05/30/17 05:00 MCV 88.3 fl (80-96) 05/30/17 05:00 MCHC 33.8 g/dl (32.0-36.0) 05/30/17 05:00 RDW 15.1 % (11.6-15.6) 05/30/17 05:00 Plt Count 342 K/MM3 (134-434) 05/30/17 05:00 MPV 8.7 fl (7.5-11.1) D 05/30/17 05:00 CMP Sodium 133 mmol/L (136-145) L 05/30/17 05:00 Potassium 3.0 mmol/L (3.5-5.1) L 05/30/17 05:00 Chloride 92 mmol/L (98-107) L 05/30/17 05:00 Carbon Dioxide 25 mmol/L (21-32) 05/30/17 05:00 Anion Gap 16 (8-16) 05/30/17 05:00 BUN 38 mg/dL (7-18) H 05/30/17 05:00 Creatinine 0.4 mg/dL (0.55-1.02) L 05/30/17 05:00 Creat Clearance w eGFR > 60 (>60) 05/30/17 05:00 Calcium 8.7 mg/dL (8.5-10.1) 05/30/17 05:00 Total Bilirubin 0.4 mg/dL (0.2-1.0) D 05/30/17 05:00 AST 13 U/L (15-37) L 05/30/17 05:00 ALT 11 U/L (12-78) L 05/30/17 05:00 Alkaline Phosphatase 127 U/L (45-117) H 05/30/17 05:00 Total Protein 6.0 g/dl (6.4-8.2) L 05/30/17 05:00 Albumin 2.9 g/dl (3.4-5.0) L 05/30/17 05:00 Problem List - Problems (1) Fecal impaction in rectum Code(s): K56.41 - FECAL IMPACTION (2) Fecal impaction of colon Code(s): K56.41 - FECAL IMPACTION (3) Chronic respiratory failure Code(s): J96.10 - CHRONIC RESPIRATORY FAILURE, UNSP W HYPOXIA OR HYPERCAPNIA (4) Supranuclear palsy Code(s): G23.1 - PROGRESSIVE SUPRANUCLEAR OPHTHALMOPLEGIA (5) UTI (urinary tract infection) Code(s): N39.0 - URINARY TRACT INFECTION, SITE NOT SPECIFIED Qualifiers: Urinary tract infection type: catheter-associated UTI Indwelling urinary catheter type: indwelling urethral catheter Encounter type: initial encounter Qualified Code(s): T83.511A - Infection and inflammatory reaction due to indwelling urethral catheter, initial encounter; N39.0 - Urinary tract infection , site not specified; N39.0 - Urinary tract infection, site not specified Assessment/Plan Tap water enemas prn Miramax tid via PEG Hold G-tube to low intermittent suction today. AXR condition discussed with pt's daughter
[2017-05-30] MEDS: MIRTAZAPINE 15 MG TABLET (FP) GT SCH (22:04)
--- NOTE | 2017-05-30 22:12 | CON.NEP ---
Consult Consult Specialty:: nephrology Referred by:: noa Reason for Consultation:: hyponatremia - History of Present Illness History of Present Illness: hyponatremia 133 [place] from [place] vent dependent resp failure uti r/o pna hyponatremia getting better s/p coffee ground emesis now on gt suction - Past Medical History ...: No - Alcohol/Substance Use Hx Alcohol Use: No - Smoking History Smoking history: Unknown if ever smoked Have you smoked in the past 12 months: No Home Medications - Allergies Allergies/Adverse Reactions: Allergies Allergy/AdvReac Type Severity Reaction Status Date / Time levofloxacin [From Levaquin] Allergy Verified 05/28/17 18:25 - Home Medications Home Medications: Ambulatory Orders Acetaminophen [Tylenol] 650 mg GT QID PRN 05/25/17 Albuterol 2.5/Ipratropium 0.5 [Duoneb -] 1 neb IH QID 05/25/17 Bismuth Tribromoph/Petrolatum [Xeroform Petrolatum Dress] 1 each TP DAILY Heparin - 5,000 unit SQ BID 05/25/17 Midodrine HCl 10 mg GT Q8H 05/25/17 Mirtazapine [Remeron -] 30 mg GT HS 05/25/17 Nystatin/Triamcin [Nystatin-Triamcinolone Cream] 15 gm TP DAILY 05/25/17 Olopatadine HCl [Patanol] 1 drop OD BID 05/25/17 Paroxetine HCl [Paxil] 40 mg GT DAILY 05/25/17 Polyethylene Glycol 3350 [Miralax (For Bowel Prep) -] 17 gm GT DAILY 05/25/17 Sennosides [Senna] 2 tab GT HS 05/25/17 Silver Sulfadiazine 1% Top Cr [Silvadene -] 1 applic TP DAILY 05/25/17 Albuterol 2.5/Ipratropium 0.5 [Duoneb -] 1 amp IH QID 05/28/17 Famotidine 20 mg PO BID 05/28/17 Hypromellose 0.5% Opth Soln [Artificial Tears] 1 drop OU BID 05/28/17 Tuberculin,Purif.prot.deriv. [Tubersol] 05/28/17 Nephrology Consult - Height Height: 5 ft 6 in - Weight Weight: 165 lb - BMI Body Mass Index (BMI): 26.6 - Lab Results CBC,BMP: CBC, BMP 05/30/17 05:00 05/30/17 05:00 Anion Gap: Anion Gap Anion Gap 16 (8-16) 05/30/17 05:00 - Physical Examination Vital Signs: Vital Signs Temperature 98.6 F 05/30/17 19:55 Pulse Rate 71 05/30/17 19:55 Respiratory Rate 18 05/30/17 20:48 Blood Pressure 105/54 05/30/17 19:55 O2 Sat by Pulse Oximetry (%) 99 05/30/17 20:48 Constitutional: Yes: Cachectic Neck: Yes: WNL Cardiovascular: Yes: WNL. No: JVD Respiratory: Yes: Mechanically Ventilated Gastrointestinal: Yes: Soft Musculoskeletal: Yes: Joint Stiffness Edema: No Neurological: Yes: Unresponsive Psychiatric: No: Alert Assessment/Plan hyponatremia with hypovolemia also hypokalemia 2/2 GI losses (gt suction) urine specific gravity >1.o60 very concentrated uti/sepsis pleural effusions r/o pna chronic rep failure on vent advanced dementia/supranuclear palsy Plan- hydrate with normal saline and follow
[2017-05-30] MEDS ORDERED: SODIUM CHLORIDE 1,000 ML IV SCH (22:15)
[2017-05-30] MEDS: SENNOSIDES 8.8 MG/5 ML BULK BOTTLE GT SCH (23:16)
[2017-05-31] MEDS: POLYETHYLENE GLYCOL 3350 119 GM BTL PO SCH ×3 (05:32→21:49)
[2017-05-31] MEDS: HEPARIN NA (PORCINE) 5,000 UNITS/ML 1ML VIAL SQ SCH ×3 (05:32→21:48)
[2017-05-31 06:40] LABS: BASO % 1.3 % (0-2.0); EOS % 3.2 % (0-4.5); HEMATOCRIT 25.4 % (32.4-45.2); HEMOGLOBIN 8.8 GM/dL (10.7-15.3); LYMPH % 22.3 % (8-40); MCH 30.3 pg (25.7-33.7); MCHC 34.6 g/dl (32.0-36.0); MEAN CELL VOLUME 87.8 fl (80-96); MEAN PLT VOLUME 7.7 fl (7.5-11.1); MONO % 6.1 % (3.8-10.2); NEUT % 67.1 % (42.8-82.8); PLATELET COUNT 275 K/MM3 (134-434); RBC 2.89 M/mm3 (3.60-5.2); RDW 14.8 % (11.6-15.6); WHITE BLOOD COUNT 6.8 K/mm3 (4.0-10.0)
[2017-05-31 07:16] LABS: ALBUMIN 2.8 g/dl (3.4-5.0); ANION GAP 11 (8-16); BILIRUBIN,TOTAL 0.4 mg/dL (0.2-1.0); BLOOD UREA NITROGEN 27 mg/dL (7-18); CALCIUM 7.8 mg/dL (8.5-10.1); CHLORIDE 99 mmol/L (98-107); CO2 24 mmol/L (21-32); CREATININE 0.3 mg/dL (0.55-1.02); GLUCOSE,RANDOM 76 mg/dL (74-106); SGOT/AST 11 U/L (15-37); SGPT/ALT 12 U/L (12-78); SODIUM 134 mmol/L (136-145); TOT PROT 5.5 g/dl (6.4-8.2); URIC ACID 5.6 mg/dL (2.6-7.2)
[2017-05-31 07:25] LABS: ALK PHOS 118 U/L (45-117)
[2017-05-31 07:35] LABS: POTASSIUM 2.8 mmol/L (3.5-5.1)
[2017-05-31] MEDS: ALBUTEROL SO4 2.5/IPRATROPIUM 0.5 INH SOL 3 ML VIAL.NEB. NEB SCH ×4 (07:52→20:05)
[2017-05-31] MEDS ORDERED: POTASSIUM CHLORIDE 20 MEQ PREMIX IVPB 100 ML IVPB ONE (08:17)
[2017-05-31 09:50] LABS: MAGNESIUM 2.4 mg/dL (1.8-2.4)
--- NOTE | 2017-05-31 10:18 | PN ---
Progress Note, Physician History of Present Illness: +MBs. Abdomen soft, non-distended. G-tube no longer to suction - Current Medication List Current Medications: Active Medications Acetaminophen (Tylenol Oral Solution -) 650 mg GT Q6H PRN PRN Reason: PAIN Last Admin: 05/30/17 06:20 Dose: 650 mg Albuterol/Ipratropium (Duoneb -) 1 amp NEB RQID [facility] Last Admin: 05/31/17 07:52 Dose: 1 amp Artificial Tears (Artificial Tears) 1 drop OU BID [facility] Last Admin: 05/30/17 22:06 Dose: 1 drop Heparin Sodium (Porcine) (Heparin -) 5,000 unit SQ TID [facility] Last Admin: 05/31/17 05:32 Dose: 5,000 unit CEFTRIAXONE 1 G/50 ML PREMIX (Ceftriaxone 1 Gm-D5w Bag) 50 mls @ 100 mls/hr IVPB DAILY [facility] Last Admin: 05/30/17 10:35 Dose: 100 mls/hr Vancomycin HCl 1,000 mg/ (Dextrose) 250 mls @ 200 mls/hr IVPB BID [facility] Last Admin: 05/30/17 22:04 Dose: 200 mls/hr Sodium Chloride (Normal Saline -) 1,000 mls @ 75 mls/hr IV ASDIR [facility] Last Admin: 05/30/17 23:15 Dose: 75 mls/hr Potassium Chloride 10 meq/ (Sodium Chloride) 105 mls @ 105 mls/hr IVPB Q1H [facility] Stop: 05/31/17 10:59 Midodrine (Proamatine -) 10 mg GT TID-MID [facility] Last Admin: 05/30/17 17:19 Dose: 10 mg Mirtazapine (Remeron -) 30 mg GT HS [facility] Last Admin: 05/30/17 22:04 Dose: 30 mg Nystatin/Triamcinolone Acetonide (Mycolog Ii Cream -) 1 applic TP DAILY [facility] Last Admin: 05/30/17 10:39 Dose: 1 applic Paroxetine HCl (Paxil -) 40 mg NR DAILY [facility] Last Admin: 05/30/17 10:35 Dose: 40 mg Polyethylene Glycol (Miralax (For Daily Use) -) 17 gm PO TID [facility] Last Admin: 05/31/17 05:32 Dose: 17 gm Ranitidine HCl (Zantac Oral Solution -) 150 mg GT BID [facility] Last Admin: 03/04/18 22:05 Dose: 150 mg Senna (Senna Oral Solution -) 17.6 mg GT HS [facility] Last Admin: 05/30/17 23:16 Dose: 17.6 mg Silver Sulfadiazine (Silvadene -) 1 applic TP DAILY [facility] Last Admin: 05/30/17 10:39 Dose: 1 applic - Objective Vital Signs: Vital Signs Temperature 98.5 F 05/31/17 07:30 Pulse Rate 71 05/31/17 07:51 Respiratory Rate 14 05/31/17 07:50 Blood Pressure 115/65 05/31/17 07:30 O2 Sat by Pulse Oximetry (%) 99 05/31/17 07:51 Constitutional: Yes: No Distress, Calm Gastrointestinal: Yes: Soft. No: Distention, Tenderness, Vomiting Labs: CBC, BMP 05/31/17 06:23 05/31/17 06:23 INR, PTT INR 1.07 (0.82-1.09) 05/29/17 02:14 CBCD WBC 6.8 K/mm3 (4.0-10.0) D 05/31/17 06:23 RBC 2.89 M/mm3 (3.60-5.2) L 05/31/17 06:23 Hgb 8.8 GM/dL (10.7-15.3) L 05/31/17 06:23 Hct 25.4 % (32.4-45.2) L 05/31/17 06:23 MCV 87.8 fl (80-96) 05/31/17 06:23 MCHC 34.6 g/dl (32.0-36.0) 05/31/17 06:23 RDW 14.8 % (11.6-15.6) 05/31/17 06:23 Plt Count 275 K/MM3 (134-434) 05/31/17 06:23 MPV 7.7 fl (7.5-11.1) D 05/31/17 06:23 CMP Sodium 134 mmol/L (136-145) L 05/31/17 06:23 Potassium 2.8 mmol/L (3.5-5.1) L* 05/31/17 06:23 Chloride 99 mmol/L (98-107) 05/31/17 06:23 Carbon Dioxide 24 mmol/L (21-32) 05/31/17 06:23 Anion Gap 11 (8-16) 05/31/17 06:23 BUN 27 mg/dL (7-18) H 05/31/17 06:23 Creatinine 0.3 mg/dL (0.55-1.02) L 05/31/17 06:23 Creat Clearance w eGFR > 60 (>60) 05/31/17 06:23 Calcium 7.8 mg/dL (8.5-10.1) L 05/31/17 06:23 Total Bilirubin 0.4 mg/dL (0.2-1.0) 05/31/17 06:23 AST 11 U/L (15-37) L 05/31/17 06:23 ALT 12 U/L (12-78) 05/31/17 06:23 Alkaline Phosphatase 118 U/L (45-117) H 05/31/17 06:23 Total Protein 5.5 g/dl (6.4-8.2) L 05/31/17 06:23 Albumin 2.8 g/dl (3.4-5.0) L 05/31/17 06:23 Problem List - Problems (1) UTI (urinary tract infection) Code(s): N39.0 - URINARY TRACT INFECTION, SITE NOT SPECIFIED Qualifiers: Urinary tract infection type: catheter-associated UTI Indwelling urinary catheter type: indwelling urethral catheter Encounter type: initial encounter Qualified Code(s): T83.511A - Infection and inflammatory reaction due to indwelling urethral catheter, initial encounter; N39.0 - Urinary tract infection , site not specified; N39.0 - Urinary tract infection, site not specified (2) Chronic respiratory failure Code(s): J96.10 - CHRONIC RESPIRATORY FAILURE, UNSP W HYPOXIA OR HYPERCAPNIA (3) Supranuclear palsy Code(s): G23.1 - PROGRESSIVE SUPRANUCLEAR OPHTHALMOPLEGIA (4) Fecal impaction in rectum Code(s): K56.41 - FECAL IMPACTION (5) Fecal impaction of colon Code(s): K56.41 - FECAL IMPACTION Assessment/Plan Tap water enemas prn Miramax tid via PEG AXR done this am formal read pending condition discussed this am with pt's daughter
[2017-05-31] MEDS: CEFTRIAXONE 1 G/50 ML PREMIX 50 ML IVPB SCH (10:22)
[2017-05-31] MEDS ORDERED: PT OWN MED DRAWER 7, Y5N ONE ×3 (10:32→16:31)
[2017-05-31] MEDS: MIDODRINE HCL 5 MG TABLET GT SCH ×3 (10:37→17:17)
[2017-05-31] MEDS: PARoxetine HCL 20 MG TABLET (FP) NR SCH (10:37)
[2017-05-31] MEDS: NYSTATIN/TRIAMCINOLONE TOPICAL CREAM 15 GM TUBE TP SCH (10:37)
[2017-05-31] MEDS: ARTIFICIAL TEARS (POLYVINYL ALCOHOL 1.4%) OPTH DROPS OU SCH ×2 (10:38→22:05)
[2017-05-31] MEDS: SILVER SULFADIAZINE 1% TOP CREAM 50 GM JAR TP SCH (10:38)
[2017-05-31] MEDS: RANITIDINE HCL 150 MG/10 ML UNIT-DOSE GT SCH ×2 (10:39→21:48)
[2017-05-31] MEDS: VANCOMYCIN 1,000 MG in DEXTROSE 5%-WATER - 250 ML IVPB SCH (10:44)
--- NOTE | 2017-05-31 11:52 | PN ---
Progress Note, Physician Chief Complaint: ID Vancomycin and Ceftriaxone Appears comfortable NO fever now - Current Medication List Current Medications: Active Medications Acetaminophen (Tylenol Oral Solution -) 650 mg GT Q6H PRN PRN Reason: PAIN Last Admin: 05/30/17 06:20 Dose: 650 mg Albuterol/Ipratropium (Duoneb -) 1 amp NEB RQID [facility] Last Admin: 05/31/17 11:26 Dose: 1 amp Artificial Tears (Artificial Tears) 1 drop OU BID [facility] Last Admin: 05/31/17 10:38 Dose: 1 drop Heparin Sodium (Porcine) (Heparin -) 5,000 unit SQ TID [facility] Last Admin: 05/31/17 05:32 Dose: 5,000 unit CEFTRIAXONE 1 G/50 ML PREMIX (Ceftriaxone 1 Gm-D5w Bag) 50 mls @ 100 mls/hr IVPB DAILY [facility] Last Admin: 05/31/17 10:22 Dose: 100 mls/hr Vancomycin HCl 1,000 mg/ (Dextrose) 250 mls @ 200 mls/hr IVPB BID [facility] Last Admin: 05/31/17 10:44 Dose: 200 mls/hr Sodium Chloride (Normal Saline -) 1,000 mls @ 75 mls/hr IV ASDIR [facility] Last Admin: 05/30/17 23:15 Dose: 75 mls/hr Midodrine (Proamatine -) 10 mg GT TID-MID [facility] Last Admin: 05/31/17 10:37 Dose: Not Given Mirtazapine (Remeron -) 30 mg GT [facility] Last Admin: 05/30/17 22:04 Dose: 30 mg Nystatin/Triamcinolone Acetonide (Mycolog Ii Cream -) 1 applic TP DAILY [facility] Last Admin: 05/31/17 10:37 Dose: 1 applic Paroxetine HCl (Paxil -) 40 mg NR DAILY [facility] Last Admin: 05/31/17 10:37 Dose: Not Given Polyethylene Glycol (Miralax (For Daily Use) -) 17 gm PO TID [facility] Last Admin: 05/31/17 05:32 Dose: 17 gm Ranitidine HCl (Zantac Oral Solution -) 150 mg GT BID [facility] Last Admin: 05/31/17 10:39 Dose: Not Given Senna (Senna Oral Solution -) 17.6 mg GT HS [facility] Last Admin: 03/04/18 23:16 Dose: 17.6 mg Silver Sulfadiazine (Silvadene -) 1 applic TP DAILY [facility] Last Admin: 05/31/17 10:38 Dose: 1 applic - Objective Vital Signs: Vital Signs Temperature 98.5 F 05/31/17 07:30 Pulse Rate 71 05/31/17 07:51 Respiratory Rate 14 05/31/17 11:26 Blood Pressure 115/65 05/31/17 07:30 O2 Sat by Pulse Oximetry (%) 99 05/31/17 07:51 Neck: Yes: Other (Tracheostomy) Gastrointestinal: Yes: Soft, Other (Feeding tube). No: Tenderness Labs: CBC, BMP 05/31/17 06:23 05/31/17 06:23 INR, PTT INR 1.07 (0.82-1.09) 05/29/17 02:14 Assessment/Plan Microbiology 05/30/17 10:30 Blood - Peripheral Venous Blood Culture - Preliminary NO GROWTH OBTAINED AFTER 24 HOURS, INCUBATION TO CONTINUE FOR 4 DAYS. 05/30/17 10:05 Blood - Peripheral Venous Blood Culture - Preliminary NO GROWTH OBTAINED AFTER 24 HOURS, INCUBATION TO CONTINUE FOR 4 DAYS. 05/28/17 20:00 Urine - Urine - Catheterized Urine Culture - Preliminary Non Lactose Fermenting Gnb Lactose Fermenting Neg Bacilli Group D Strep Or Entero Coccus 05/28/17 20:00 Blood - Peripheral Venous Blood Culture - Preliminary NO GROWTH OBTAINED AFTER 48 HOURS, INCUBATION TO CONTINUE FOR 3 DAYS. Laboratory Tests 05/30/17 05/30/17 05/31/17 05:00 05:00 06:23 WBC 13.2 H 6.8 D RBC 2.89 L Hgb 8.8 L Plt Count 275 Potassium 3.0 L BUN Creatinine Magnesium Total Bilirubin AST Alkaline Phosphatase 05/31/17 06:23 WBC RBC Hgb Plt Count Potassium 2.8 L* BUN 27 H Creatinine 0.3 L Magnesium 2.4 Total Bilirubin 0.4 AST 11 L Alkaline Phosphatase 118 H Assessment BLood culture a contaminant. May have urinary infection Multiple organisms probably colonized Plan Stop Vancomycin Stop Ceftriaxone Give Zosyn to cover lora in urine culture Katy VERONICA
[2017-05-31] MEDS: POTASSIUM CHLORIDE 10 MEQ in SODIUM CHLORIDE 100 ML IVPB SCH ×2 (12:41→14:10)
[2017-05-31 13:22] LABS: ANION GAP 16 (8-16); BLOOD UREA NITROGEN 23 mg/dL (7-18); CALCIUM 8.4 mg/dL (8.5-10.1); CHLORIDE 96 mmol/L (98-107); CO2 22 mmol/L (21-32); GLUCOSE,RANDOM 84 mg/dL (74-106); SODIUM 134 mmol/L (136-145)
[2017-05-31 13:23] LABS: CREATININE 0.2 mg/dL (0.55-1.02)
[2017-05-31] MEDS: POTASSIUM CHLORIDE 40 MEQ in SODIUM CHLORIDE 1,000 ML IVPB SCH (14:09)
[2017-05-31 14:11] LABS: POTASSIUM 2.6 mmol/L (3.5-5.1)
--- NOTE | 2017-05-31 14:22 | PN ---
Progress Note, Physician History of Present Illness: pulmonary no distress on vent support - Current Medication List Current Medications: Active Medications Acetaminophen (Tylenol Oral Solution -) 650 mg GT Q6H PRN PRN Reason: PAIN Last Admin: 05/30/17 06:20 Dose: 650 mg Albuterol/Ipratropium (Duoneb -) 1 amp NEB RQID [facility] Last Admin: 05/31/17 11:26 Dose: 1 amp Artificial Tears (Artificial Tears) 1 drop OU BID [facility] Last Admin: 05/31/17 10:38 Dose: 1 drop Heparin Sodium (Porcine) (Heparin -) 5,000 unit SQ TID [facility] Last Admin: 05/31/17 14:09 Dose: 5,000 unit Piperacillin Sod/Tazobactam (Sod 3.375 gm/ Dextrose) 50 mls @ 100 mls/hr IVPB Q8H-IV [facility] PRN Reason: Protocol Potassium Chloride 40 meq/ (Sodium Chloride) 1,020 mls @ 70 mls/hr IVPB Q14H [facility] Last Admin: 05/31/17 14:09 Dose: 70 mls/hr Midodrine (Proamatine -) 10 mg GT TID-MID [facility] Last Admin: 05/31/17 10:37 Dose: Not Given Mirtazapine (Remeron -) 30 mg GT HS [facility] Last Admin: 05/30/17 22:04 Dose: 30 mg Nystatin/Triamcinolone Acetonide (Mycolog Ii Cream -) 1 applic TP DAILY [facility] Last Admin: 05/31/17 10:37 Dose: 1 applic Pantoprazole Sodium (Protonix Packets For Oral Suspension -) 40 mg NGT BID [facility] Paroxetine HCl (Paxil -) 40 mg NR DAILY [facility] Last Admin: 05/31/17 10:37 Dose: Not Given Polyethylene Glycol (Miralax (For Daily Use) -) 17 gm PO TID [facility] Last Admin: 05/31/17 14:14 Dose: Not Given Ranitidine HCl (Zantac Oral Solution -) 150 mg GT BID [facility] Last Admin: 05/31/17 10:39 Dose: Not Given Senna (Senna Oral Solution -) 17.6 mg GT HS [facility] Last Admin: 05/30/17 23:16 Dose: 17.6 mg Silver Sulfadiazine (Silvadene -) 1 applic TP DAILY [facility] Last Admin: 05/31/17 10:38 Dose: 1 applic - Objective Vital Signs: Vital Signs Temperature 98.5 F 05/31/17 07:30 Pulse Rate 71 05/31/17 07:51 Respiratory Rate 14 05/31/17 11:26 Blood Pressure 115/65 05/31/17 07:30 O2 Sat by Pulse Oximetry (%) 99 05/31/17 07:51 Constitutional: Yes: Well Nourished, Other (poorlyresponsive) Eyes: Yes: WNL HENT: Yes: WNL Neck: Yes: Supple (trach) Cardiovascular: Yes: Regular Rate and Rhythm, S1, S2 Respiratory: Yes: Rhonchi (few scattered rhonchi) Gastrointestinal: Yes: Normal Bowel Sounds, Soft Extremities: Yes: WNL Edema: No Labs: CBC, BMP 05/31/17 06:23 05/31/17 12:25 INR, PTT INR 1.07 (0.82-1.09) 05/29/17 02:14 Assessment/Plan A/P UTI Supranuclear Palsy Vent Dependent Respiratory Failure r/o CHF Hyponatremia - IV antibiotics - monitor urine output, creatinine - monitor CXR - continue SIMV, decreased back up rate to 6, PS 10 - replete lytes - enteral feeds - DVT prophylaxis Problem List - Problems (1) UTI (urinary tract infection) Code(s): N39.0 - URINARY TRACT INFECTION, SITE NOT SPECIFIED Qualifiers: Urinary tract infection type: catheter-associated UTI Indwelling urinary catheter type: indwelling urethral catheter Encounter type: initial encounter Qualified Code(s): T83.511A - Infection and inflammatory reaction due to indwelling urethral catheter, initial encounter; N39.0 - Urinary tract infection , site not specified; N39.0 - Urinary tract infection, site not specified (2) Chronic respiratory failure Code(s): J96.10 - CHRONIC RESPIRATORY FAILURE, UNSP W HYPOXIA OR HYPERCAPNIA
[2017-05-31] MEDS: PANTOPRAZOLE SOD 40 MG SUSPENSION PACKET NGT SCH ×2 (15:15→21:48)
--- NOTE | 2017-05-31 15:18 | PN ---
Teaching Attending Note Name of Resident: Romel Romano ATTENDING PHYSICIAN STATEMENT I saw and evaluated the patient. I reviewed the resident's note and discussed the case with the resident. I agree with the resident's findings and plan as documented. SUBJECTIVE: Patient is more awake today , Less lethargic. On the vent. continues, Nonverbal. OBJECTIVE: Vital Signs Temperature 100.0 F H 05/31/17 14:45 Pulse Rate 89 05/31/17 14:45 Respiratory Rate 16 05/31/17 14:45 Blood Pressure 95/63 05/31/17 14:45 O2 Sat by Pulse Oximetry (%) 99 05/31/17 07:51 CBCD WBC 6.8 K/mm3 (4.0-10.0) D 05/31/17 06:23 RBC 2.89 M/mm3 (3.60-5.2) L 05/31/17 06:23 Hgb 8.8 GM/dL (10.7-15.3) L 05/31/17 06:23 Hct 25.4 % (32.4-45.2) L 05/31/17 06:23 MCV 87.8 fl (80-96) 05/31/17 06:23 MCHC 34.6 g/dl (32.0-36.0) 05/31/17 06:23 RDW 14.8 % (11.6-15.6) 05/31/17 06:23 Plt Count 275 K/MM3 (134-434) 05/31/17 06:23 MPV 7.7 fl (7.5-11.1) D 05/31/17 06:23 CMP Sodium 134 mmol/L (136-145) L 05/31/17 12:25 Potassium 2.6 mmol/L (3.5-5.1) L* 05/31/17 12:25 Chloride 96 mmol/L (98-107) L 05/31/17 12:25 Carbon Dioxide 22 mmol/L (21-32) 05/31/17 12:25 Anion Gap 16 (8-16) 05/31/17 12:25 BUN 23 mg/dL (7-18) H 05/31/17 12:25 Creatinine 0.2 mg/dL (0.55-1.02) L 05/31/17 12:25 Creat Clearance w eGFR > 60 (>60) 05/31/17 06:23 Random Glucose 84 mg/dL (74-106) 05/31/17 12:25 Calcium 8.4 mg/dL (8.5-10.1) L 05/31/17 12:25 Total Bilirubin 0.4 mg/dL (0.2-1.0) 05/31/17 06:23 AST 11 U/L (15-37) L 05/31/17 06:23 ALT 12 U/L (12-78) 05/31/17 06:23 Alkaline Phosphatase 118 U/L (45-117) H 05/31/17 06:23 Total Protein 5.5 g/dl (6.4-8.2) L 05/31/17 06:23 Albumin 2.8 g/dl (3.4-5.0) L 05/31/17 06:23 CARDIAC ENZYMES Creatine Kinase 38 IU/L (26-192) 05/28/17 20:00 Troponin I < 0.02 ng/ml (0.00-0.05) 05/28/17 20:00 Current Medications Generic Name Dose Route Start Last Admin Trade Name Freq PRN Reason Stop Dose Admin Acetaminophen 650 mg 05/29/17 01:56 05/30/17 06:20 Tylenol Oral Solution - GT 650 mg Q6H PRN Administration PAIN Albuterol/Ipratropium 1 amp 05/29/17 08:00 05/31/17 11:26 Duoneb - NEB 1 amp RQID GRAC[facility] Administration Artificial Tears 1 drop 05/29/17 10:00 05/31/17 10:38 Artificial Tears OU 1 drop BID GR[facility]IE Administration Heparin Sodium (Porcine) 5,000 unit 05/29/17 06:00 05/31/17 14:09 Heparin - SQ 5,000 unit TID GR[facility] Administration Piperacillin Sod/Tazobactam 50 mls @ 100 mls/hr 05/31/17 18:00 Sod 3.375 gm/ Dextrose IVPB Q8H-IV GR[facility] Protocol Potassium Chloride 40 meq/ 1,020 mls @ 70 mls/hr 05/31/17 11:55 05/31/17 14: 09 Sodium Chloride IVPB 70 mls/hr Q14H [facility] Administration Midodrine 10 mg 05/29/17 10:00 05/31/17 10:37 Proamatine - GT Not Given TID-MID GR[facility] Mirtazapine 30 mg 05/29/17 22:00 05/30/17 22:04 Remeron - GT 30 mg HS GRACIE Administration Nystatin/Triamcinolone Acetonide 1 applic 05/29/17 10:00 05/31/17 10:37 Mycolog Ii Cream - TP 1 applic DAILY [facility] Administration Pantoprazole Sodium 40 mg 05/31/17 13:15 Protonix Packets For Oral Suspension - NGT BID [facility] Paroxetine HCl 40 mg 05/29/17 10:00 05/31/17 10:37 Paxil - NR Not Given DAILY [facility] Polyethylene Glycol 17 gm 05/29/17 22:00 05/31/17 14:14 Miralax (For Daily Use) - PO Not Given TID [facility] Ranitidine HCl 150 mg 05/29/17 10:00 05/31/17 10:39 Zantac Oral Solution - GT Not Given BID [facility] Senna 17.6 mg 05/29/17 22:00 05/30/17 23:16 Senna Oral Solution - GT 17.6 mg HS [facility] Administration Silver Sulfadiazine 1 applic 05/29/17 10:00 05/31/17 10:38 Silvadene - TP 1 applic DAILY [facility] Administration Home Medications Medication Instructions Recorded Atenolol [Tenormin -] 25 mg PO DAILY 01/02/15 Methenamine 1 gm PO BID 01/02/15 Mirtazapine 30 mg PO DAILY 01/02/15 Paroxetine HCl 40 mg PO DAILY 01/02/15 Multivitamin 1 tab PO DAILY 01/10/15 Prostat Sugar-Free Packet - 1 packet PO TID 01/10/15 Acetaminophen [Tylenol] 650 mg GT QID PRN 05/25/17 Albuterol 2.5/Ipratropium 0.5 1 neb IH QID 05/25/17 [Duoneb -] Bismuth Tribromoph/Petrolatum 1 each TP DAILY 05/25/17 [Xeroform Petrolatum Dress] Heparin - 5,000 unit SQ BID 05/25/17 Midodrine HCl 10 mg GT Q8H 05/25/17 Mirtazapine [Remeron -] 30 mg GT HS 05/25/17 Nystatin/Triamcin 15 gm TP DAILY 05/25/17 [Nystatin-Triamcinolone Cream] Olopatadine HCl [Patanol] 1 drop OD BID 05/25/17 Paroxetine HCl [Paxil] 40 mg GT DAILY 05/25/17 Polyethylene Glycol 3350 [Miralax 17 gm GT DAILY 05/25/17 (For Bowel Prep) -] Sennosides [Senna] 2 tab GT HS 05/25/17 Silver Sulfadiazine 1% Top Cr 1 applic TP DAILY 05/25/17 [Silvadene -] Albuterol 2.5/Ipratropium 0.5 1 amp IH QID 05/28/17 [Duoneb -] Famotidine 20 mg PO BID 05/28/17 Hypromellose 0.5% Opth Soln 1 drop OU BID 05/28/17 [Artificial Tears] Tuberculin,Purif.prot.deriv. 05/28/17 [Tubersol] PE: Nonverbal, eyes closed, Neck: Positive for tracheostomy Chest: decreased BS at basis. Abdomen:Soft today, res rest of PE per resident's note CXR: B/l Effusions with basilar infiltrate with congestive changes, CM , old rib trauma. ASSESSMENT/PLAN: Patient is a 76 year old female with history of supranuclear palsy, s/p trach placement in 03/14 and g-tube placement in 2014 here from [facility] for evaluation of possible infection was found to be septic and admitted for further evaluation. # Sepsis secondary to UTI vs aspiration pneumonia; CXR: B/l Effusions with basilar infiltrate with congestive changes, CM , old rib trauma. Leigh culture was done, follow Cx, and Bcx On IV Rocephin daily was changed to Zosyn as per ID , will check with ID the lenght of treatment plan. Patient is improving. As per ID blood culture is a contaminant, Vancomycin was stopped, and Rocephin, and Zosyn was started today 05/31/2017 # Chronic respiratory failure , trached due to supranuclear palsy. # Acute UTI with chronic indwelling catheter for 9 years, can't remove the catheter as per patient's daughter will continue with Zosyn , s/p Rocephin # Hyponatremia; NA 130--> 131-->134 improving will discontinue IVF since patient has congestive changes on the CXR. # Acute hypokalemia: being repleted by nephro # Acute over chronic constipation: started on Miralx 2x per day , water enema as per GI, abdomen is soft today will restart the tubr feed today. # Stage II decupetus ulcer patient presented with from NH: erythema with skin exfoliation but no signs of infection ;topical zinc oxide ;change position q 2hr # COPD:DUO neb;O2 to keeo O2 sat >90 %, pulmonary on the case # DVT Px sCDS, Hep 5000 q 8hr GI Px: Protonix
--- NOTE | 2017-05-31 16:07 | PN ---
Physical Exam: SUBJECTIVE: Patient seen and examined at bedside. no acute events over night . on vent, Gtube in place , abdomen more soft and we start her tube feeding. OBJECTIVE: Vital Signs Period Temp Pulse Resp BP Sys/Mandel Pulse Ox Last 24 Hr 98.1 F-100.0 F 66-89 14-19 95-115/54-65 99-99 GENERAL: The patient is lying in bed, eyes closed, non verbal, no acute distress noted, no diaphoresis. HEAD: Normal with no signs of trauma. EYES: extraocular movements not assessed, sclera anicteric, conjunctiva clear. ENT: oropharynx clear without exudates, moist mucous membranes. NECK: supple, trach applied. LUNGS: coarse bilaterally, no wheezes, no accessory muscle use, no skin changes , rash. HEART: Regular rate and rhythm, S1, S2 without murmur, rub or gallop. ABDOMEN: Soft, non tender, non distended, normoactive bowel sounds, no guarding , no rebound, PEG tube present in place EXTREMITIES: 2+ pulses, warm, no edema. NEUROLOGICAL: not oriented,non verbal , eyes closed with minimal grimacing , not following commands, gait not observed. PSYCH: Normal mood, normal affect. SKIN: Warm, dry, normal turgor, 5x5 cm decubitus ulcer with erythema and no signs of infection. Laboratory Results - last 24 hr 05/31/17 05/31/17 05/31/17 06:23 06:23 06:23 WBC 6.8 D RBC 2.89 L Hgb 8.8 L Hct 25.4 L MCV 87.8 MCH 30.3 MCHC 34.6 RDW 14.8 Plt Count 275 MPV 7.7 D Neutrophils % 67.1 Lymphocytes % 22.3 Monocytes % 6.1 Eosinophils % 3.2 D Basophils % 1.3 Sodium 134 L Potassium 2.8 L* Chloride 99 Carbon Dioxide 24 Anion Gap 11 BUN 27 H Creatinine 0.3 L Creat Clearance w eGFR > 60 Random Glucose 76 Uric Acid 5.6 Calcium 7.8 L Magnesium 2.4 Cancelled Total Bilirubin 0.4 AST 11 L ALT 12 Alkaline Phosphatase 118 H Total Protein 5.5 L Albumin 2.8 L TSH 1.95 05/31/17 12:25 WBC RBC Hgb Hct MCV MCH MCHC RDW Plt Count MPV Neutrophils % Lymphocytes % Monocytes % Eosinophils % Basophils % Sodium 134 L Potassium 2.6 L* Chloride 96 L Carbon Dioxide 22 Anion Gap 16 BUN 23 H Creatinine 0.2 L Creat Clearance w eGFR Random Glucose 84 Uric Acid Calcium 8.4 L Magnesium Total Bilirubin AST ALT Alkaline Phosphatase Total Protein Albumin TSH Active Medications Generic Name Dose Route Start Last Admin Trade Name Freq PRN Reason Stop Dose Admin Acetaminophen 650 mg 05/29/17 01:56 05/30/17 06:20 Tylenol Oral Solution - GT 650 mg Q6H PRN Administration PAIN Albuterol/Ipratropium 1 amp 05/29/17 08:00 05/31/17 11:26 Duoneb - NEB 1 amp RQID [facility] Administration Artificial Tears 1 drop 05/29/17 10:00 05/31/17 10:38 Artificial Tears OU 1 drop BID [facility] Administration Heparin Sodium (Porcine) 5,000 unit 05/29/17 06:00 05/31/17 14:09 Heparin - SQ 5,000 unit TID [facility] Administration Piperacillin Sod/Tazobactam 50 mls @ 100 mls/hr 05/31/17 18:00 Sod 3.375 gm/ Dextrose IVPB Q8H-IV GRACIE Protocol Potassium Chloride 40 meq/ 1,020 mls @ 70 mls/hr 05/31/17 11:55 05/31/17 14: 09 Sodium Chloride IVPB 70 mls/hr Q14H GR[facility]IE Administration Midodrine 10 mg 05/29/17 10:00 05/31/17 15:16 Proamatine - GT Not Given TID-MID [facility] Mirtazapine 30 mg 05/29/17 22:00 05/30/17 22:04 Remeron - GT 30 mg HS GR[facility] Administration Nystatin/Triamcinolone Acetonide 1 applic 05/29/17 10:00 05/31/17 10:37 Mycolog Ii Cream - TP 1 applic DAILY [facility] Administration Pantoprazole Sodium 40 mg 05/31/17 13:15 05/31/17 15:15 Protonix Packets For Oral Suspension - NGT Not Given BID [facility] Paroxetine HCl 40 mg 05/29/17 10:00 05/31/17 10:37 Paxil - NR Not Given DAILY [facility] Polyethylene Glycol 17 gm 05/29/17 22:00 05/31/17 14:14 Miralax (For Daily Use) - PO Not Given TID [facility] Ranitidine HCl 150 mg 05/29/17 10:00 05/31/17 10:39 Zantac Oral Solution - GT Not Given BID [facility] Senna 17.6 mg 05/29/17 22:00 05/30/17 23:16 Senna Oral Solution - GT 17.6 mg HS [facility] Administration Silver Sulfadiazine 1 applic 05/29/17 10:00 05/31/17 10:38 Silvadene - TP 1 applic DAILY [facility] Administration CBC, BMP 05/31/17 06:23 05/31/17 12:25 ASSESSMENT/PLAN: 76 year old female with history of supranuclear palsy, s/p trach placement in and g-tube placement in 2014 here from assisted for evaluation of possible infection was found to be septic and admitted for further evaluation. # sepsis secondary to UTI vs aspiration pneumonia vs another sources * temp 100.4 , Tachy 97, BP 114/82, wbc 15.1 , LA 1.2 * chronic alvarez catheter and PEG Tube * Leigh cx urine ,blood * Rocephin in ED * ID consulted Dr Tre Banuelos * IV fluids NA 100 CC/Hr * ESR, CRP , CBC , CMP # Hyponatremia, HYPOKALEMIA * NA 130 , K 2.6 * started on IV NS 100 CC/hr * K REPLINISHED * MONITOR BMP # Stage II decupitus ulcer * erythema with skin exfoliation but no signs of infection * topical radha oxide * change position q 2hr # Chronic respiratory failure on ventilator , unknown reason , stable * continue ventilator * kepp O2 > 90 % # COPD * DUO neb * O2 to keeo O2 sat >90 % # Supranuclear palsy , chronic , stable * continue to monitor # anemia likley 2/2 low oral intake vs chronic diseases * H/H stable * no active bleeding * continue to monitor * stool occult negative # JOEY likely 2/2 low oral intake * BUN /Cr 23/0.2 * started on IV fluids * avoid toxic agents * monitor BMP # resume her home meds # FEN * NS @ 100 CC/Hr * E: Monitor * N: NPO till G tube evaluated # Proph * DVTS: sCDS, Hep 5000 q 8hr * GI: No need for now # Dispo * admit to med surg
--- NOTE | 2017-05-31 16:48 | PN ---
Progress Note (short form) - Note Progress Note: Renal follow up for Hypokalemia/Hyponatremia Pt seen and examined at the bedside on the vent with 30% FIO2 pt awakes to verbal stimuli on IVF making urine Vital Signs Temperature 100.0 F H 05/31/17 14:45 Pulse Rate 89 05/31/17 14:45 Respiratory Rate 16 05/31/17 14:45 Blood Pressure 95/63 05/31/17 14:45 O2 Sat by Pulse Oximetry (%) 99 05/31/17 07:51 Intake & Output 05/28/17 05/29/17 05/30/17 05/31/17 23:59 23:59 23:59 23:59 Intake Total 700 950 Output Total 350 1950 700 Balance 350 -1950 250 Weight 74.843 kg 74.843 kg NAD awake on Vent via trach RRR Corse BS, no rales soft NT/ND feeding tube in place No LE edema CBC, BMP 05/31/17 06:23 05/31/17 12:25 Current Medications Acetaminophen (Tylenol Oral Solution -) 650 mg GT Q6H PRN PRN Reason: PAIN Last Admin: 05/30/17 06:20 Dose: 650 mg Albuterol/Ipratropium (Duoneb -) 1 amp NEB RQID [facility] Last Admin: 05/31/17 11:26 Dose: 1 amp Artificial Tears (Artificial Tears) 1 drop OU BID [facility] Last Admin: 05/31/17 10:38 Dose: 1 drop Heparin Sodium (Porcine) (Heparin -) 5,000 unit SQ TID [facility] Last Admin: 05/31/17 14:09 Dose: 5,000 unit Piperacillin Sod/Tazobactam (Sod 3.375 gm/ Dextrose) 50 mls @ 100 mls/hr IVPB Q8H-IV GRACIE PRN Reason: Protocol Potassium Chloride 40 meq/ (Sodium Chloride) 1,020 mls @ 70 mls/hr IVPB Q14H [facility] Last Admin: 05/31/17 14:09 Dose: 70 mls/hr Potassium Chloride (Potassium Chloride 10 Meq Premix Ivpb -) 10 meq in 100 mls @ 100 mls/hr IVPB Q60M [facility] Stop: 05/31/17 19:44 Midodrine (Proamatine -) 10 mg GT TID-MID [facility] Last Admin: 05/31/17 15:16 Dose: Not Given Mirtazapine (Remeron -) 30 mg GT HS [facility] Last Admin: 05/30/17 22:04 Dose: 30 mg Nystatin/Triamcinolone Acetonide (Mycolog Ii Cream -) 1 applic TP DAILY [facility] Last Admin: 05/31/17 10:37 Dose: 1 applic Pantoprazole Sodium (Protonix Packets For Oral Suspension -) 40 mg NGT BID [facility] Last Admin: 05/31/17 15:15 Dose: Not Given Paroxetine HCl (Paxil -) 40 mg NR DAILY [facility] Last Admin: 05/31/17 10:37 Dose: Not Given Polyethylene Glycol (Miralax (For Daily Use) -) 17 gm PO TID [facility] Last Admin: 05/31/17 14:14 Dose: Not Given Ranitidine HCl (Zantac Oral Solution -) 150 mg GT BID [facility] Last Admin: 05/31/17 10:39 Dose: Not Given Senna (Senna Oral Solution -) 17.6 mg GT HS [facility] Last Admin: 05/30/17 23:16 Dose: 17.6 mg Silver Sulfadiazine (Silvadene -) 1 applic TP DAILY [facility] Last Admin: 05/31/17 10:38 Dose: 1 applic 76 year old woman wit Supra-nuclear palsy presented with fever and admitted for UTI/Sepsis with fecal impaction and Hyponatremia/Hypokalemia. #Hyponatremia/Hypokalemia Pt appers to have hypovolemic hyponatremia in setting fo sepsis Hypokalemia likely secondary to GI losses and decreased enteral intake will give IV supplementation with goal K > 4 will add KCL to NS to run as maintenance fluids Trend BMP Q12h Mg is at goal Thank you Justin Farrell DO
[2017-05-31] MEDS ORDERED: POTASSIUM CHLORIDE 30 MEQ in SODIUM CHLORIDE 285 ML IVPB ONE (17:00)
[2017-05-31] MEDS: PIPERACILLIN/TAZOB 3.375 GM 3.375 GM in DEXTROSE 5%-WATER - 50 ML IVPB SCH (17:17)
[2017-05-31] MEDS: MIRTAZAPINE 15 MG TABLET (FP) GT SCH (21:48)
[2017-05-31] MEDS: SENNOSIDES 8.8 MG/5 ML BULK BOTTLE GT SCH (21:49)
[2017-06-01] MEDS: POTASSIUM CHLORIDE 40 MEQ in SODIUM CHLORIDE 1,000 ML IVPB SCH ×3 (02:00→17:19)
[2017-06-01] MEDS: PIPERACILLIN/TAZOB 3.375 GM 3.375 GM in DEXTROSE 5%-WATER - 50 ML IVPB SCH ×2 (02:25→11:03)
[2017-06-01] MEDS: HEPARIN NA (PORCINE) 5,000 UNITS/ML 1ML VIAL SQ SCH ×2 (06:05→15:42)
[2017-06-01] MEDS: POLYETHYLENE GLYCOL 3350 119 GM BTL PO SCH ×2 (06:07→15:38)
[2017-06-01] MEDS: ACETAMINOPHEN 650 MG/20.3 ML ORAL SOLUTION (CUPS) GT PRN (06:20)
[2017-06-01 07:28] LABS: BASO % 1.1 % (0-2.0); EOS % 5.1 % (0-4.5); HEMATOCRIT 27.2 % (32.4-45.2); HEMOGLOBIN 9.4 GM/dL (10.7-15.3); LYMPH % 24.5 % (8-40); MCH 30.6 pg (25.7-33.7); MCHC 34.4 g/dl (32.0-36.0); MEAN CELL VOLUME 88.9 fl (80-96); MEAN PLT VOLUME 7.6 fl (7.5-11.1); MONO % 7.6 % (3.8-10.2); NEUT % 61.7 % (42.8-82.8); PLATELET COUNT 283 K/MM3 (134-434); RBC 3.06 M/mm3 (3.60-5.2); RDW 14.8 % (11.6-15.6); WHITE BLOOD COUNT 6.1 K/mm3 (4.0-10.0)
[2017-06-01 07:56] LABS: ALBUMIN 2.7 g/dl (3.4-5.0); ALK PHOS 125 U/L (45-117); ANION GAP 10 (8-16); BILIRUBIN,TOTAL 0.5 mg/dL (0.2-1.0); BLOOD UREA NITROGEN 19 mg/dL (7-18); CHLORIDE 104 mmol/L (98-107); CO2 24 mmol/L (21-32); CREATININE 0.3 mg/dL (0.55-1.02); GLUCOSE,RANDOM 104 mg/dL (74-106); MAGNESIUM 2.4 mg/dL (1.8-2.4); POTASSIUM 3.4 mmol/L (3.5-5.1); SGOT/AST 7 U/L (15-37); SGPT/ALT 13 U/L (12-78); SODIUM 138 mmol/L (136-145); TOT PROT 5.7 g/dl (6.4-8.2)
[2017-06-01] MEDS: ALBUTEROL SO4 2.5/IPRATROPIUM 0.5 INH SOL 3 ML VIAL.NEB. NEB SCH ×3 (08:05→15:40)
--- NOTE | 2017-06-01 09:57 | PN ---
Physical Exam: SUBJECTIVE: Patient seen and examined OBJECTIVE: Vital Signs Period Temp Pulse Resp BP Sys/Mandel Pulse Ox Last 24 Hr 98.2 F-100.2 F 66-89 14-18 95-125/62-65 98 GENERAL: The patient is lying in bed, eyes closed, non verbal, no acute distress noted, no diaphoresis. HEAD: Normal with no signs of trauma. EYES: extraocular movements not assessed, sclera anicteric, conjunctiva clear. ENT: oropharynx clear without exudates, moist mucous membranes. NECK: Trachea midline, full range of motion, supple, trach applied. LUNGS: coarse bilaterally, no wheezes, no accessory muscle use, no skin changes , rash. HEART: Regular rate and rhythm, S1, S2 without murmur, rub or gallop. ABDOMEN: Soft, non tender, non distended, normo active bowel sounds, no guarding , no rebound, PEG tube present-n skin rash, EXTREMITIES: 2+ pulses, warm, no edema. NEUROLOGICAL: not oriented, eyes closed, not following commands, gait not observed. PSYCH: Normal mood, normal affect. SKIN: Warm, dry, normal turgor, no rashes. Laboratory Results - last 24 hr 05/31/17 05/31/17 06/01/17 12:25 19:15 07:15 WBC 6.1 RBC 3.06 L Hgb 9.4 L Hct 27.2 L MCV 88.9 MCH 30.6 MCHC 34.4 RDW 14.8 Plt Count 283 MPV 7.6 Neutrophils % 61.7 Lymphocytes % 24.5 Monocytes % 7.6 Eosinophils % 5.1 H Basophils % 1.1 Sodium 134 L Potassium 2.6 L* Chloride 96 L Carbon Dioxide 22 Anion Gap 16 BUN 23 H Creatinine 0.2 L Creat Clearance w eGFR Random Glucose 84 Calcium 8.4 L Magnesium Total Bilirubin AST ALT Alkaline Phosphatase Total Protein Albumin Stool Occult Blood Negative 06/01/17 07:15 WBC RBC Hgb Hct MCV MCH MCHC RDW Plt Count MPV Neutrophils % Lymphocytes % Monocytes % Eosinophils % Basophils % Sodium 138 Potassium 3.4 L Chloride 104 Carbon Dioxide 24 Anion Gap 10 BUN 19 H Creatinine 0.3 L Creat Clearance w eGFR > 60 Random Glucose 104 Calcium 8.0 L Magnesium 2.4 Total Bilirubin 0.5 D AST 7 L ALT 13 Alkaline Phosphatase 125 H Total Protein 5.7 L Albumin 2.7 L Stool Occult Blood Active Medications Generic Name Dose Route Start Last Admin Trade Name Freq PRN Reason Stop Dose Admin Acetaminophen 650 mg 05/29/17 01:56 06/01/17 06:20 Tylenol Oral Solution - GT 650 mg Q6H PRN Administration PAIN Albuterol/Ipratropium 1 amp 05/29/17 08:00 05/31/17 20:05 Duoneb - NEB 1 amp RQID GRACIE Administration Artificial Tears 1 drop 05/29/17 10:00 05/31/17 22:05 Artificial Tears OU 1 drop BID [facility] Administration Heparin Sodium (Porcine) 5,000 unit 05/29/17 06:00 06/01/17 06:05 Heparin - SQ 5,000 unit TID [facility] Administration Piperacillin Sod/Tazobactam 50 mls @ 100 mls/hr 05/31/17 18:00 06/01/17 02:25 Sod 3.375 gm/ Dextrose IVPB 100 mls/hr Q8H-IV [facility] Administration Protocol Potassium Chloride 40 meq/ 1,020 mls @ 70 mls/hr 05/31/17 11:55 06/01/17 02: 00 Sodium Chloride IVPB Not Given Q14H GRACIE Midodrine 10 mg 05/29/17 10:00 05/31/17 17:17 Proamatine - GT 10 mg TID-MID GRACIE Administration Mirtazapine 30 mg 05/29/17 22:00 05/31/17 21:48 Remeron - GT 30 mg HS GRACIE Administration Nystatin/Triamcinolone Acetonide 1 applic 05/29/17 10:00 05/31/17 10:37 Mycolog Ii Cream - TP 1 applic DAILY [facility] Administration Pantoprazole Sodium 40 mg 05/31/17 13:15 05/31/17 21:48 Protonix Packets For Oral Suspension - NGT 40 mg BID [facility] Administration Paroxetine HCl 40 mg 05/29/17 10:00 05/31/17 10:37 Paxil - NR Not Given DAILY [facility] Polyethylene Glycol 17 gm 05/29/17 22:00 06/01/17 06:07 Miralax (For Daily Use) - PO Not Given TID [facility] Ranitidine HCl 150 mg 05/29/17 10:00 05/31/17 21:48 Zantac Oral Solution - GT 150 mg BID [facility] Administration Senna 17.6 mg 05/29/17 22:00 05/31/17 21:49 Senna Oral Solution - GT 17.6 mg HS [facility] Administration Silver Sulfadiazine 1 applic 05/29/17 10:00 05/31/17 10:38 Silvadene - TP 1 applic DAILY [facility] Administration CBC, BMP 06/01/17 07:15 06/01/17 07:15 ASSESSMENT/PLAN: 76 year old female with history of supranuclear palsy admitted from [facility] for evaluation of possible infection was found to be septic. sepsis -possibly due to UTI, less likely due to aspiration pneumonia vs another sources -fever, tachy, elevated WBC on admission, UA positive for infection -chronic alvarez catheter -T max 100.5 F -Urine culture positive for non lactose fermenting GnB, lactose ferm. neg bacilli, Group D strep -Blood culture pending Staph in one bottle -will continue Rocephin ad Vancomycin was started by Dr Banuelos, -f/u ID recommendations -CRP 0.6 -CXR today unchanged Constipation, resolved * continue Miralax, Senna, * abdominal x ray * f/u GI recommendations Hyponatremia , hypokalemia * NA 138, K 3.4 * hypovolemic hyponatremia in setting fo sepsis * Hypokalemia likely secondary to GI losses and decreased enteral intake will give IV supplementation with goal K > 4 will add KCL to NS to run as maintenance fluids Trend BMP Q12h Mg is at goal Stage II decubitus ulcer * erythema with skin exfoliation but no signs of infection * topical radha oxide * change position q 2hr * wound care COPD * DUO nebs * O2 to keep O2 sat >90 % FEN: no/no/NPO DVT PPX: * scds, * Heparin 5000 u Sq Dispo: med surg
[2017-06-01] MEDS: PARoxetine HCL 20 MG TABLET (FP) NR SCH (11:03)
[2017-06-01] MEDS: PANTOPRAZOLE SOD 40 MG SUSPENSION PACKET NGT SCH (11:03)
[2017-06-01] MEDS: RANITIDINE HCL 150 MG/10 ML UNIT-DOSE GT SCH (11:03)
[2017-06-01] MEDS: MIDODRINE HCL 5 MG TABLET GT SCH ×2 (11:03→15:43)
[2017-06-01] MEDS: NYSTATIN/TRIAMCINOLONE TOPICAL CREAM 15 GM TUBE TP SCH (11:05)
[2017-06-01] MEDS: SILVER SULFADIAZINE 1% TOP CREAM 50 GM JAR TP SCH (11:05)
[2017-06-01] MEDS: ARTIFICIAL TEARS (POLYVINYL ALCOHOL 1.4%) OPTH DROPS OU SCH (11:05)
--- NOTE | 2017-06-01 11:11 | PN ---
Teaching Attending Note Name of Resident: Romel Romano ATTENDING PHYSICIAN STATEMENT I saw and evaluated the patient. I reviewed the resident's note and discussed the case with the resident. I agree with the resident's findings and plan as documented. SUBJECTIVE: Patient is comfortable, more responsive, no nausea or vomiting, no abdominal pain. positive for Trach. OBJECTIVE: Vital Signs Temperature 100.2 F H 06/01/17 07:16 Pulse Rate 89 06/01/17 07:16 Respiratory Rate 14 06/01/17 10:05 Blood Pressure 106/64 06/01/17 07:16 O2 Sat by Pulse Oximetry (%) 98 05/31/17 21:00 CBCD WBC 6.1 K/mm3 (4.0-10.0) 06/01/17 07:15 RBC 3.06 M/mm3 (3.60-5.2) L 06/01/17 07:15 Hgb 9.4 GM/dL (10.7-15.3) L 06/01/17 07:15 Hct 27.2 % (32.4-45.2) L 06/01/17 07:15 MCV 88.9 fl (80-96) 06/01/17 07:15 MCHC 34.4 g/dl (32.0-36.0) 06/01/17 07:15 RDW 14.8 % (11.6-15.6) 06/01/17 07:15 Plt Count 283 K/MM3 (134-434) 06/01/17 07:15 MPV 7.6 fl (7.5-11.1) 06/01/17 07:15 CMP Sodium 138 mmol/L (136-145) 06/01/17 07:15 Potassium 3.4 mmol/L (3.5-5.1) L 06/01/17 07:15 Chloride 104 mmol/L (98-107) 06/01/17 07:15 Carbon Dioxide 24 mmol/L (21-32) 06/01/17 07:15 Anion Gap 10 (8-16) 06/01/17 07:15 BUN 19 mg/dL (7-18) H 06/01/17 07:15 Creatinine 0.3 mg/dL (0.55-1.02) L 06/01/17 07:15 Creat Clearance w eGFR > 60 (>60) 06/01/17 07:15 Random Glucose 104 mg/dL (74-106) 06/01/17 07:15 Calcium 8.0 mg/dL (8.5-10.1) L 06/01/17 07:15 Total Bilirubin 0.5 mg/dL (0.2-1.0) D 06/01/17 07:15 AST 7 U/L (15-37) L 06/01/17 07:15 ALT 13 U/L (12-78) 06/01/17 07:15 Alkaline Phosphatase 125 U/L (45-117) H 06/01/17 07:15 Total Protein 5.7 g/dl (6.4-8.2) L 06/01/17 07:15 Albumin 2.7 g/dl (3.4-5.0) L 06/01/17 07:15 CARDIAC ENZYMES Creatine Kinase 38 IU/L (26-192) 05/28/17 20:00 Troponin I < 0.02 ng/ml (0.00-0.05) 05/28/17 20:00 Current Medications Generic Name Dose Route Start Last Admin Trade Name Freq PRN Reason Stop Dose Admin Acetaminophen 650 mg 05/29/17 01:56 06/01/17 06:20 Tylenol Oral Solution - GT 650 mg Q6H PRN Administration PAIN Albuterol/Ipratropium 1 amp 05/29/17 08:00 06/01/17 08:05 Duoneb - NEB 1 amp RQID [facility] Administration Artificial Tears 1 drop 05/29/17 10:00 06/01/17 11:05 Artificial Tears OU 1 drop BID [facility] Administration Heparin Sodium (Porcine) 5,000 unit 05/29/17 06:00 06/01/17 06:05 Heparin - SQ 5,000 unit TID [facility] Administration Piperacillin Sod/Tazobactam 50 mls @ 100 mls/hr 05/31/17 18:00 06/01/17 11:03 Sod 3.375 gm/ Dextrose IVPB 100 mls/hr Q8H-IV [facility] Administration Protocol Potassium Chloride 40 meq/ 1,020 mls @ 70 mls/hr 05/31/17 11:55 06/01/17 11: 02 Sodium Chloride IVPB 70 mls/hr Q14H [facility] Administration Midodrine 10 mg 05/29/17 10:00 06/01/17 11:03 Proamatine - GT 10 mg TID-MID [facility] Administration Mirtazapine 30 mg 05/29/17 22:00 05/31/17 21:48 Remeron - GT 30 mg HS [facility] Administration Nystatin/Triamcinolone Acetonide 1 applic 05/29/17 10:00 06/01/17 11:05 Mycolog Ii Cream - TP 1 applic DAILY [facility] Administration Pantoprazole Sodium 40 mg 05/31/17 13:15 06/01/17 11:03 Protonix Packets For Oral Suspension - NGT 40 mg BID [facility] Administration Paroxetine HCl 40 mg 05/29/17 10:00 06/01/17 11:03 Paxil - NR 40 mg DAILY [facility] Administration Polyethylene Glycol 17 gm 05/29/17 22:00 06/01/17 06:07 Miralax (For Daily Use) - PO Not Given TID [facility] Ranitidine HCl 150 mg 05/29/17 10:00 06/01/17 11:03 Zantac Oral Solution - GT 150 mg BID [facility] Administration Senna 17.6 mg 05/29/17 22:00 05/31/17 21:49 Senna Oral Solution - GT 17.6 mg HS [facility] Administration Silver Sulfadiazine 1 applic 05/29/17 10:00 06/01/17 11:05 Silvadene - TP 1 applic DAILY [facility] Administration Home Medications Medication Instructions Recorded Atenolol [Tenormin -] 25 mg PO DAILY 01/02/15 Methenamine 1 gm PO BID 01/02/15 Mirtazapine 30 mg PO DAILY 01/02/15 Paroxetine HCl 40 mg PO DAILY 01/02/15 Multivitamin 1 tab PO DAILY 01/10/15 Prostat Sugar-Free Packet - 1 packet PO TID 01/10/15 Acetaminophen [Tylenol] 650 mg GT QID PRN 05/25/17 Albuterol 2.5/Ipratropium 0.5 1 neb IH QID 05/25/17 [Duoneb -] Bismuth Tribromoph/Petrolatum 1 each TP DAILY 05/25/17 [Xeroform Petrolatum Dress] Heparin - 5,000 unit SQ BID 05/25/17 Midodrine HCl 10 mg GT Q8H 05/25/17 Mirtazapine [Remeron -] 30 mg GT HS 05/25/17 Nystatin/Triamcin 15 gm TP DAILY 05/25/17 [Nystatin-Triamcinolone Cream] Olopatadine HCl [Patanol] 1 drop OD BID 05/25/17 Paroxetine HCl [Paxil] 40 mg GT DAILY 05/25/17 Polyethylene Glycol 3350 [Miralax 17 gm GT DAILY 05/25/17 (For Bowel Prep) -] Sennosides [Senna] 2 tab GT HS 05/25/17 Silver Sulfadiazine 1% Top Cr 1 applic TP DAILY 05/25/17 [Silvadene -] Albuterol 2.5/Ipratropium 0.5 1 amp IH QID 05/28/17 [Duoneb -] Famotidine 20 mg PO BID 05/28/17 Hypromellose 0.5% Opth Soln 1 drop OU BID 05/28/17 [Artificial Tears] Tuberculin,Purif.prot.deriv. 05/28/17 [Tubersol] PE: Patient is a nonverbal, eyes opens and closes. Neck: Positive for tracheostomy Chest: decreased BS at basis. Abdomen:Soft , BS positive, nt, NR rest of PE per resident's note CXR: B/l Effusions with basilar infiltrate with congestive changes, CM , old rib trauma. ASSESSMENT/PLAN: Patient is a 76 year old female with history of supranuclear palsy, s/p trach placement in 03/14 and g-tube placement in 2014 here from [facility] for evaluation of possible infection was found to be septic and admitted for further evaluation. # s/p Sepsis secondary to UTI vs aspiration pneumonia; CXR: B/l Effusions with basilar infiltrate with congestive changes, CM , old rib trauma. Leigh culture was done, blood culture is negative, UA growing multiple organism , discussed with ID to give another dose of ROcephin 2gm now and dsicharge her with Nitrofurantoin 50mg po every 6 hrs. x 5 days. Bcx is negative so far. s/p IV Zosyn as per ID. # Chronic respiratory failure , trached due to supranuclear palsy. # Acute UTI with chronic indwelling catheter for 9 years, can't remove the catheter as per patient's daughter will continue treating with IV antibiotic and will discharge her on PO meds. Nitrofurantioin according to sensitivity. # Hyponatremia; NA 130--> 131-->134-->138 today . improved , will discontinue IVF since patient has congestive changes on the CXR. # Acute hypokalemia: being repleted by nephro # Acute over chronic constipation: started on Miralx 2x per day , water enema as per GI, abdomen is soft , tube feed was restarted yesterday , continue to advance to the goal and check for residual. # Stage II decupetus ulcer patient presented with from NH: erythema with skin exfoliation but no signs of infection ;topical zinc oxide ;change position q 2hr # COPD:DUO neb;O2 to keeo O2 sat >90 %, pulmonary on the case # DVT Px sCDS, Hep 5000 q 8hr GI Px: Protonix As per ID to give 2gm of Rocephin today and continue with Nitrofurantoin 50mg q6h x 5 days. will add bacid to her regimen take it for life patient can be discharged back to Rehab.Facility.
--- NOTE | 2017-06-01 12:01 | PN ---
Progress Note (short form) - Note Progress Note: PULMONARY Low grade temps. Currently on volume assist control with 40% FiO2. Last Vital Signs Temp Pulse Resp BP Pulse Ox 100.2 F H 89 14 106/64 98 06/01/17 07:16 06/01/17 07:16 06/01/17 10:05 06/01/17 07:16 05/31/17 21:00 Gen: vented, NAD Heart: RRR Lung: decreased breath sounds at the bases Abd: softly distended, nontender Ext: contracted, no edema CBC, BMP 06/01/17 07:15 06/01/17 07:15 Active Medications Acetaminophen (Tylenol Oral Solution -) 650 mg GT Q6H PRN PRN Reason: PAIN Last Admin: 06/01/17 06:20 Dose: 650 mg Albuterol/Ipratropium (Duoneb -) 1 amp NEB RQID [facility] Last Admin: 06/01/17 08:05 Dose: 1 amp Artificial Tears (Artificial Tears) 1 drop OU BID [facility] Last Admin: 06/01/17 11:05 Dose: 1 drop Heparin Sodium (Porcine) (Heparin -) 5,000 unit SQ TID [facility] Last Admin: 06/01/17 06:05 Dose: 5,000 unit Piperacillin Sod/Tazobactam (Sod 3.375 gm/ Dextrose) 50 mls @ 100 mls/hr IVPB Q8H-IV [facility] PRN Reason: Protocol Last Admin: 06/01/17 11:03 Dose: 100 mls/hr Potassium Chloride 40 meq/ (Sodium Chloride) 1,020 mls @ 70 mls/hr IVPB Q14H [facility] Last Admin: 06/01/17 11:02 Dose: 70 mls/hr Midodrine (Proamatine -) 10 mg GT TID-MID [facility] Last Admin: 06/01/17 11:03 Dose: 10 mg Mirtazapine (Remeron -) 30 mg GT HS [facility] Last Admin: 05/31/17 21:48 Dose: 30 mg Nitrofurantoin Macrocrystals (Macrodantin -) 50 mg PO Q6HPO [facility] Nystatin/Triamcinolone Acetonide (Mycolog Ii Cream -) 1 applic TP DAILY [facility] Last Admin: 06/01/17 11:05 Dose: 1 applic Pantoprazole Sodium (Protonix Packets For Oral Suspension -) 40 mg NGT BID [facility] Last Admin: 06/01/17 11:03 Dose: 40 mg Paroxetine HCl (Paxil -) 40 mg NR DAILY [facility] Last Admin: 06/01/17 11:03 Dose: 40 mg Polyethylene Glycol (Miralax (For Daily Use) -) 17 gm PO TID [facility] Last Admin: 06/01/17 06:07 Dose: Not Given Potassium Chloride (Potassium Chloride Oral Liquid) 40 meq GT ONCE ONE Stop: 06/01/17 11:57 Ranitidine HCl (Zantac Oral Solution -) 150 mg GT BID [facility] Last Admin: 06/01/17 11:03 Dose: 150 mg Senna (Senna Oral Solution -) 17.6 mg GT HS [facility] Last Admin: 05/31/17 21:49 Dose: 17.6 mg Silver Sulfadiazine (Silvadene -) 1 applic TP DAILY [facility] Last Admin: 06/01/17 11:05 Dose: 1 applic A/P UTI Supranuclear Palsy Vent Dependent Respiratory Failure r/o CHF Hyponatremia - IV antibiotics - f/u cultures - monitor urine output, creatinine - monitor CXR - continue SIMV, back up rate to 10, PS 10 - consider enema, disimpaction - enteral feeds - DVT prophylaxis Problem List - Problems (1) UTI (urinary tract infection) Code(s): N39.0 - URINARY TRACT INFECTION, SITE NOT SPECIFIED Qualifiers: Urinary tract infection type: catheter-associated UTI Indwelling urinary catheter type: indwelling urethral catheter Encounter type: initial encounter Qualified Code(s): T83.511A - Infection and inflammatory reaction due to indwelling urethral catheter, initial encounter; N39.0 - Urinary tract infection , site not specified; N39.0 - Urinary tract infection, site not specified (2) Chronic respiratory failure Code(s): J96.10 - CHRONIC RESPIRATORY FAILURE, UNSP W HYPOXIA OR HYPERCAPNIA
[2017-06-01] MEDS ORDERED: POTASSIUM CHLORIDE ORAL LIQUID 20 MEQ/15 ML GT ONE (12:30)
[2017-06-01 14:35] VITALS: BP 117/53; PULSE 66; TEMP 98.9
[2017-06-01] MEDS ORDERED: PT OWN MED DRAWER 7, Y5N ONE (15:41)
--- NOTE | 2017-06-01 16:44 | DS ---
Physical Exam: SUBJECTIVE: Patient seen and examined at bedside. no acute events over night . on vent, G tube in place , abdomen more soft, started her tube feeding. OBJECTIVE: Vital Signs Period Temp Pulse Resp BP Sys/Mandel Pulse Ox Last 24 Hr 98.2 F-100.2 F 66-89 1218 102-125/53-65 98 PHYSICAL EXAM GENERAL: The patient is lying in bed, eyes closed, non verbal, no acute distress noted, no diaphoresis. HEAD:NC/AT, eye closed with grimacing EYES: extraocular movements not assessed, sclera anicteric, conjunctiva clear. ENT: dry mucous membranes. NECK: supple, trach applied. LUNGS:dimished breath sounds , no wheezes, no accessory muscle use, no skin changes, rash. HEART: Regular rate and rhythm, S1, S2 without murmur, rub or gallop. ABDOMEN: Soft, NT,ND, normoactive bowel sounds, no guarding, no rebound, PEG tube present with no leakage. EXTREMITIES: 2+ pulses, warm, no edema. NEUROLOGICAL: not oriented, eyes closed, not following commands, gait not observed. PSYCH: Normal mood, normal affect. SKIN: Warm, dry, normal turgor, no rashes.stage 2 decupitus ulcer 5x5 cm with no signs of infection LABS Laboratory Results - last 24 hr 05/30/17 05/31/17 06/01/17 23:20 19:15 07:15 WBC 6.1 RBC 3.06 L Hgb 9.4 L Hct 27.2 L MCV 88.9 MCH 30.6 MCHC 34.4 RDW 14.8 Plt Count 283 MPV 7.6 Neutrophils % 61.7 Lymphocytes % 24.5 Monocytes % 7.6 Eosinophils % 5.1 H Basophils % 1.1 Sodium Potassium Chloride Carbon Dioxide Anion Gap BUN Creatinine Creat Clearance w eGFR Random Glucose Calcium Magnesium Total Bilirubin AST ALT Alkaline Phosphatase Total Protein Albumin Urine Osmolality 651 Ur Random Sodium Stool Occult Blood Negative 06/01/17 06/01/17 07:15 09:00 WBC RBC Hgb Hct MCV MCH MCHC RDW Plt Count MPV Neutrophils % Lymphocytes % Monocytes % Eosinophils % Basophils % Sodium 138 Potassium 3.4 L Chloride 104 Carbon Dioxide 24 Anion Gap 10 BUN 19 H Creatinine 0.3 L Creat Clearance w eGFR > 60 Random Glucose 104 Calcium 8.0 L Magnesium 2.4 Total Bilirubin 0.5 D AST 7 L ALT 13 Alkaline Phosphatase 125 H Total Protein 5.7 L Albumin 2.7 L Urine Osmolality Ur Random Sodium 54 Stool Occult Blood CBC, BMP 06/01/17 07:15 06/01/17 07:15 Microbiology 05/28/17 20:00 Blood - Peripheral Venous Blood Culture - Preliminary NO GROWTH OBTAINED AFTER 96 HOURS, INCUBATION TO CONTINUE FOR 1 DAYS. 05/30/17 10:30 Blood - Peripheral Venous Blood Culture - Preliminary NO GROWTH OBTAINED AFTER 48 HOURS, INCUBATION TO CONTINUE FOR 3 DAYS. 05/30/17 10:05 Blood - Peripheral Venous Blood Culture - Preliminary NO GROWTH OBTAINED AFTER 48 HOURS, INCUBATION TO CONTINUE FOR 3 DAYS. 05/28/17 20:00 Urine - Urine - Catheterized Urine Culture - Final Providencia Stuartii Enterobacter Cloacae Vr Ec Faecalis 05/28/17 19:55 Blood - Peripheral Venous Blood Culture - Preliminary Staphylococcus Coagulase Neg HOSPITAL COURSE: Date of Admission:05/29/17 Date of Discharge: 06/01/17 pt is a 76 year old female with history of supranuclear palsy, s/p trach placement in 03/14 and g-tube placement [facility] infection was found to be septic and admitted for further evaluation. for sepsis secondary to UTI vs aspiration pneumonia vs another sources resolved with iv abx ceftriaxone 1gm GT daily and SERA Weber was consulted who switch her to zosyn to cover lora in urine culture. pt has chronic alvarez catheter and PEG Tube. pt has improved and was free of fever with no wbc on day of discharged. pt was found to have Hyponatremia likely due to low oral intake and was treated with IV NS 100 CC/hr. pt has Stage II decupitus ulcer with erythema and skin exfoliation but no signs of infection treated with topical radha oxide, change position q 2hr , and wound care bid. pt has Chronic respiratory failure on ventilator ,unknown reason , stable on ventilator and pulmonary was consulted who recommed duo-neb for chronic copd. pt has Supranuclear palsy , chronic , stable . all pt meds was resumed an admission and [facility] her [facility] meds and was started on Nitrofurantoin 50 mg q6hr for 5 days. Nephrology was consulted for hypokalemia Dr.Shaji joel who replenished her K and recommend to repeat BMP within a week of DC. pt will follow up with supervisor core shop Dr.Shaji joel within one week and her PCP enid one week and with Dr.BArry espitia infectious disease within one week. pt is hemodynamiclly stable and ready to dc to nursing facility with the recommended follow up. Minutes to complete discharge: 40 Discharge Summary Reason For Visit: URINARY TRACT INFECTION Current Active Problems Chronic respiratory failure (Chronic) Supranuclear palsy (Chronic) UTI (urinary tract infection) (Chronic) - Instructions Diet, Activity, Other Instructions: You were admitted to the hospital due to urinary tract infection and you were treated with antibiotics . You will be discharged to rehab. facility with oral antibiotics. Please take Nitrofurantoin 50mg every 6hrs x 5 days. Please take prescribed laxative Miralax to avoid constipation and make sure you have daily bowel movement. Please resume all other home meds as prescribed before admission. Please Take Bacid , lactobacillus for the rest of your life. Please follow up with your primary care physician within one week Please follow up with Dr Vin Espitia infectious disease doctor within one week. Follow up with gastreoenterology within one week Please follow up with Dr.Shaji joel neprologist within one week.to repeat BMP and monitor electrolytes. If you develop fever, chills or your symptoms worsen call 911 or return to emergency room [facility]. Referrals: Ford Banuelos MD [Staff Physician] - 1 Week Diego Coffey MD [Primary Care Provider] - 1 Week Justin Farrell MD [Staff Physician] - 1 Week Disposition: CARE HOME FACILITY - Home Medications Comprehensive Discharge Medication List: Ambulatory Orders Prostat Sugar-Free Packet - 1 packet PO TID 01/10/15 Acetaminophen [Tylenol] 650 mg GT QID PRN 05/25/17 Albuterol 2.5/Ipratropium 0.5 [Duoneb -] 1 neb IH QID 05/25/17 Bismuth Tribromoph/Petrolatum [Xeroform Petrolatum Dress] 1 each TP DAILY Heparin - 5,000 unit SQ BID 05/25/17 Midodrine HCl 10 mg GT Q8H 05/25/17 Mirtazapine [Remeron -] 30 mg GT HS 05/25/17 Nystatin/Triamcin [Nystatin-Triamcinolone Cream] 15 gm TP DAILY 05/25/17 Olopatadine HCl [Patanol] 1 drop OD BID 05/25/17 Paroxetine HCl [Paxil] 40 mg GT DAILY 05/25/17 Sennosides [Senna -] 2 tab GT HS 05/25/17 Silver Sulfadiazine 1% Top Cr [Silvadene -] 1 applic TP DAILY 05/25/17 Famotidine 20 mg PO BID 05/28/17 Lactobacillus Acidophilus [Bacid -] 1 tab PO BID tab 06/01/17 Nitrofurantoin Macrocrystal [Macrodantin -] 50 mg PO Q6HPO #20 capsule 06/01/17 Polyethylene Glycol 3350 [Miralax 119 gm Btl -] 17 gm PO DAILY 06/01/17 Polyvinyl Alcohol [Artificial Tears] 1 drop OD TID 06/01/17 - Discharge Referral Referred to [facility] No
--- NOTE | 2017-06-01 16:50 | PN ---
Progress Note (short form) - Note Progress Note: Renal follow up for Hypokalemia/Hyponatremia Pt seen and examined at the bedside no overnight events + low grade temp for possible discharge today Vital Signs Temperature 98.9 F 06/01/17 14:34 Pulse Rate 66 06/01/17 14:34 Respiratory Rate 12 06/01/17 14:34 Blood Pressure 117/53 06/01/17 14:34 O2 Sat by Pulse Oximetry (%) 98 05/31/17 21:00 Intake & Output 05/29/17 05/30/17 05/31/17 06/01/17 23:59 23:59 23:59 23:59 Intake Total 700 1430 1000 Output Total 350 1950 700 600 Balance 350 -1950 730 400 Weight 74.843 kg 70.76 kg NAD awake on Vent via trach RRR Corse BS, no rales soft NT/ND feeding tube in place No LE edema CBC, BMP 06/01/17 07:15 06/01/17 07:15 Current Medications Acetaminophen (Tylenol Oral Solution -) 650 mg GT Q6H PRN PRN Reason: PAIN Last Admin: 06/01/17 06:20 Dose: 650 mg Albuterol/Ipratropium (Duoneb -) 1 amp NEB RQID [facility] Last Admin: 06/01/17 12:15 Dose: 1 amp Artificial Tears (Artificial Tears) 1 drop OU BID [facility] Last Admin: 06/01/17 11:05 Dose: 1 drop Heparin Sodium (Porcine) (Heparin -) 5,000 unit SQ TID [facility] Last Admin: 06/01/17 15:42 Dose: 5,000 unit Piperacillin Sod/Tazobactam (Sod 3.375 gm/ Dextrose) 50 mls @ 100 mls/hr IVPB Q8H-IV [facility] PRN Reason: Protocol Last Admin: 06/01/17 11:03 Dose: 100 mls/hr Potassium Chloride 40 meq/ (Sodium Chloride) 1,020 mls @ 70 mls/hr IVPB Q14H [facility] Last Admin: 06/01/17 11:02 Dose: 70 mls/hr Lactobacillus Acidophilus (Bacid -) 1 tab PO BID [facility] Midodrine (Proamatine -) 10 mg GT TID-MID [facility] Last Admin: 06/01/17 15:43 Dose: 10 mg Mirtazapine (Remeron -) 30 mg GT HS [facility] Last Admin: 05/31/17 21:48 Dose: 30 mg Nitrofurantoin Macrocrystals (Macrodantin -) 50 mg PO Q6HPO [facility] Nystatin/Triamcinolone Acetonide (Mycolog Ii Cream -) 1 applic TP DAILY [facility] Last Admin: 06/01/17 11:05 Dose: 1 applic Pantoprazole Sodium (Protonix Packets For Oral Suspension -) 40 mg NGT BID [facility] Last Admin: 06/01/17 11:03 Dose: 40 mg Paroxetine HCl (Paxil -) 40 mg NR DAILY [facility] Last Admin: 06/01/17 11:03 Dose: 40 mg Polyethylene Glycol (Miralax (For Daily Use) -) 17 gm PO TID [facility] Last Admin: 06/01/17 15:38 Dose: Not Given Ranitidine HCl (Zantac Oral Solution -) 150 mg GT BID [facility] Last Admin: 06/01/17 11:03 Dose: 150 mg Senna (Senna Oral Solution -) 17.6 mg GT HS [facility] Last Admin: 05/31/17 21:49 Dose: 17.6 mg Silver Sulfadiazine (Silvadene -) 1 applic TP DAILY [facility] Last Admin: 06/01/17 11:05 Dose: 1 applic 76 year old woman wit Supra-nuclear palsy presented with fever and admitted for UTI/Sepsis with fecal impaction and Hyponatremia/Hypokalemia. #Hyponatremia/Hypokalemia serum na and K improved can d/c IVF as pt now started on oral feeds continue tube feeds with free water should have BMP checked in 3-5 days Thank you Justin Farrell DO
[2017-06-01] MEDS ORDERED: LACTOBACILLUS ACIDOPHILUS 1 EACH TAB (FP) PO SCH (22:00)
[2017-06-02] MEDS ORDERED: NITROFURANTOIN MACROCRYSTAL 50 MG CAPSULE (FP) PO SCH ×2 (06:00→10:00)
== END 2017-06-01 18:14 | DRG 698 ==
LOC: JER 18:20 → JERBED 05-29 00:45 → MERGE 05-29 00:45 → J5S 05-29 12:30
PROVIDERS: ADMIT Internal Medicine; ATTEND Internal Medicine
PROC: 5A1945Z Respiratory Ventilation, 24-96 Consecutive Hours (ICD-10-PCS; principal; 2017-05-28)
DX: T83.511A Infection and inflammatory reaction due to indwelling urethral catheter, initial encounter (principal); A41.9 Sepsis, unspecified organism; J69.0 Pneumonitis due to inhalation of food and vomit; F31.89 Other bipolar disorder; E87.3 Alkalosis; G23.1 Progressive supranuclear ophthalmoplegia [Steele-Richardson-Olszewski]; J96.10 Chronic respiratory failure, unspecified whether with hypoxia or hypercapnia; E87.1 Hypo-osmolality and hyponatremia; J90 Pleural effusion, not elsewhere classified; R64 Cachexia; N17.9 Acute kidney failure, unspecified; J44.9 Chronic obstructive pulmonary disease, unspecified; F32.9 Major depressive disorder, single episode, unspecified; D72.828 Other elevated white blood cell count; N39.0 Urinary tract infection, site not specified; L89.312 Pressure ulcer of right buttock, stage 2; K56.41 Fecal impaction; Z68.25 Body mass index [BMI] 25.0-25.9, adult; E87.6 Hypokalemia; D64.9 Anemia, unspecified; E86.1 Hypovolemia; Y83.8 Other surgical procedures as the cause of abnormal reaction of the patient, or of later complication, without mention of misadventure at the time of the procedure; Z93.1 Gastrostomy status; Y92.89 Other specified places as the place of occurrence of the external cause; Z93.0 Tracheostomy status; Z96.651 Presence of right artificial knee joint
CPT/HCPCS: 36415; 36600; 71045-TC-FY; 74018-TC-FY; 74177-TC; 80048; 80053; 81003; 81015; 82272; 82375; 82550; 82803; 83050; 83605; 83735; 83935; 84100; 84300; 84443; 84484; 84550; 85025; 85610; 85730; 86140; 86850; 86900; 86901; 87040; 87086; 87186; 93005; 93010; 94002; 94640; 99285-25; J1644